=== PATIENT | male | born 1935 | race Caucasian/White ===

== ENCOUNTER 2020-08-03 13:45 | Outpatient (RCR) | payer MEDICARE, OTHER, SELFPAY ==
--- NOTE | 2020-07-13 17:44 | PT.OIE ---
Current Diagnoses Meniere's disease, left ear (07/13/20) Benign paroxysmal vertigo, left ear (07/13/20) Unspecified sensorineural hearing loss (07/13/20) Other specified disorders of nose and nasal sinuses (07/13/20) Dizziness and giddiness (07/13/20) Visit Care Team Role Provider Type Sharmin Urbano MD Primary Care Provider Non-Staff Specialty: Internal Medicine Address: [address] [place] [address], [address] Email: Joel Fierro MD Attending Provider Physician Referring Provider Specialty: Ear, Nose, Throat Address: [address] [place] [address], [address] Email: [email or web address] Physical Therapy Initial Evaluation PT-OP-A Visit Information Start: 07/13/20 17:30 Freq: Status: Active Protocol: Document 07/13/20 14:30 DCW (Rec: 07/13/20 17:44 DCW [id number]) Out-Patient Physical Therapy Visit Information Visit Information Visit Type Initial Evaluation Visit Start Time 14:30 Visit Stop Time 15:15 Total Visit Minutes 45 Visit Number 1 Number of WEALTH MANAGEMENT CONSULTANT Visits 0 Evaluation Information Evaluation Date 07/13/20 PT-OP-B Current Condition Start: 07/13/20 17:30 Freq: Status: Active Protocol: Document 07/13/20 14:30 DCW (Rec: 07/13/20 17:44 DCW [id number]) Current Condition History of Current Condition Onset Date 6-7 months Current Complaints Position-dependent vertigo History of Current Condition Pt is an 84 year old male complaining of a 6-7 month history of motion-induced vertigo. Pt reports episodes last a few seconds to a minute. Symptoms are provoked by changing positions, looking down, or rolling in bed. Pt's history is complicated by a five year history of Meniere's disease, however pt notes these symptoms are entirely different. Pt does admit to taking a daily medication for Meniere's disease, which helps the dizziness some, but really takes care of the nausea and vomiting. Pt denies recent hearing changes, tinnitus, dysarthria, discoordination, or decreased mentation/consciousness. Pt denies hx of HTN, diabetes, arrhythmia, head trauma, seizure, migraines, back/neck problems, CVA, anxiety/panic disorders, depression, or excessive smoking or drinking. Pt reports he has been very careful not to fall, because he lives alone. Pt does note a long history of diplopia, however this has been corrected with the lenses in his current glasses. PT-OP-C Subjective Start: 07/13/20 17:30 Freq: Status: Active Protocol: Document 07/13/20 14:30 DCW (Rec: 07/13/20 17:44 DCW [id number]) OP-PT Subjective Patient Comments Patient Comments When I'm just sitting, I don' t have any problems. Patient Questionnaires Dizziness Handicap Inventory DHI Score 28% PT-OP-O Vestibular Start: 07/13/20 17:30 Freq: Status: Active Protocol: Document 07/13/20 14:30 DCW (Rec: 07/13/20 17:44 DCW [id number]) Vestibular Assessment Screening Tests Vestibular Artery Screen Negative Auditory Tests Delvalle Test Lateralizes left Rinne Test Negative Air Conduction Results Right Greater Visual Testing Smooth Pursuits Horizontal WNL Smooth Pursuits Vertical WNL Saccades Horizontal WNL Saccades Vertical WNL Heave Test Positive Left Thrust Head Positive Left Positional Testing Dick-Hallpike Positive Right,Negative Left, Upbeating,< 60 Seconds PT-OP-Q Treatments Start: 07/13/20 17:30 Freq: Status: Active Protocol: Document 07/13/20 14:30 DCW (Rec: 07/13/20 17:44 DCW [id number]) Canalithic Repositioning BPPV Treatment Chelly Affected Canal(s) Left posterior Reps x2 Comments Modified Chelly PT-OP-T Assessment and Plan Start: 07/13/20 17:30 Freq: Status: Active Protocol: Document 07/13/20 14:30 DCW (Rec: 07/13/20 17:44 DCW [id number]) Physical Therapy Assessment Rehab Potential Rehabilitation Potential Excellent Evaluation Complexity Number of Personal Factors/Comorbidities 0 Number of Body Systems Impaired 1-2 Clinical Presentation at Evaluation Unstable Impairments Impairments Balance,Vestibular Goals Three Impairment Pt scores a 28% disability on the Dizziness Handicap Inventory Short Term Goal (STG) Pt to score <10% on the DHI Two Impairment Positive left [place]-Hallpike Short Term Goal (STG) Negative positional testing bilaterally STG Duration 08/13/20 One Impairment Pt reports vertigo with changes in position Short Term Goal (STG) Pt to report no symptoms during bed mobility STG Duration 08/13/20 Assessment Summary Assessment During left Dick-Hallpike test, pt complained of vertigo and demonstrated up-beating, torsional nystagmus lasting approximately 10 seconds, consistent with diagnosis of left-sided posterior canal BPPV, canalithiasis-type. Pt was treated with a left-sided modified Chelly maneuver. Pt complained of symptoms in the first and third position, which is normally indicative of a successful treatment. Further positional testing was negative. Pt did display some other positive vestibular tests, including positive thrust/heave, positive L Delvalle test, and decreased L hearing , however these are all consistent with pt's known history of Meniere's disease. Pt was educated on BPPV, expectations for treatment, possible recurrence (BPPV has a ~50% recurrence rate in the five years following treatment ), and post-Chelly restrictions . Pt to return in ~1 week for a follow-up appointment, and intermittently afterward as indicated for treatment of BPPV. Physical Therapy Plan Frequency and Duration Frequency of Treatment 1-2x/week Therapeutic Interventions Therapeutic Interventions Balance Training,Canalithic Repositioning,Vestibular Rehabilitation Next Visit Focus/Plan Next Note Type Treatment Note Next Visit Plan Positional testing, CRM as indicated
--- NOTE | 2020-07-13 17:44 | PT.OPPOC ---
Physical, Occupational & Speech Therapy At [facility] Current Diagnoses Meniere's disease, left ear (07/13/20) Benign paroxysmal vertigo, left ear (07/13/20) Unspecified sensorineural hearing loss (07/13/20) Other specified disorders of nose and nasal sinuses (07/13/20) Dizziness and giddiness (07/13/20) Visit Care Team Role Provider Type Sharmin Urbano MD Primary Care Provider Non-Staff Specialty: Internal Medicine Address: [address] [place] [address], [phone] Email: Joel Fierro MD Attending Provider Physician Referring Provider Specialty: Ear, Nose, Throat Address: [address] [place] [address], [id number] Email: [email or web address] Plan Of Care PT-OP-T Assessment and Plan Start: 07/13/20 17:30 Freq: Status: Active Protocol: Document 07/13/20 14:30 DCW (Rec: 07/13/20 17:44 DCW [id number]) Physical Therapy Assessment Rehab Potential Rehabilitation Potential Excellent Evaluation Complexity Number of Personal Factors/Comorbidities 0 Number of Body Systems Impaired 1-2 Clinical Presentation at Evaluation Unstable Impairments Impairments Balance,Vestibular Goals Three Impairment Pt scores a 28% disability on the Dizziness Handicap Inventory Short Term Goal (STG) Pt to score <10% on the DHI Two Impairment Positive left [place]-Hallpike Short Term Goal (STG) Negative positional testing bilaterally STG Duration 08/13/20 One Impairment Pt reports vertigo with changes in position Short Term Goal (STG) Pt to report no symptoms during bed mobility STG Duration 08/13/20 Assessment Summary Assessment During left Dick-Hallpike test, pt complained of vertigo and demonstrated up-beating, torsional nystagmus lasting approximately 10 seconds, consistent with diagnosis of left-sided posterior canal BPPV, canalithiasis-type. Pt was treated with a left-sided modified Chelly maneuver. Pt complained of symptoms in the first and third position, which is normally indicative of a successful treatment. Further positional testing was negative. Pt did display some other positive vestibular tests, including positive thrust/heave, positive L Delvalle test, and decreased L hearing , however these are all consistent with pt's known history of Meniere's disease. Pt was educated on BPPV, expectations for treatment, possible recurrence (BPPV has a ~50% recurrence rate in the five years following treatment ), and post-Chelly restrictions . Pt to return in ~1 week for a follow-up appointment, and intermittently afterward as indicated for treatment of BPPV. Physical Therapy Plan Frequency and Duration Frequency of Treatment 1-2x/week Therapeutic Interventions Therapeutic Interventions Balance Training,Canalithic Repositioning,Vestibular Rehabilitation Next Visit Focus/Plan Next Note Type Treatment Note Next Visit Plan Positional testing, CRM as indicated Electronically Signed by: Valdemar Montero, PT 07/13/20 3420 Please Sign and Return: I have reviewed this Plan of Care and certify that the skilled therapy services above are required to meet the patient?s needs. Physician Signature Date Printed Name and Credentials Clinical Instructor Signature Printed Name and Credentials
--- NOTE | 2020-08-03 14:12 | PT.OTN ---
Current Diagnoses Meniere's disease, left ear (08/03/20) Benign paroxysmal vertigo, left ear (08/03/20) Unspecified sensorineural hearing loss (08/03/20) Other specified disorders of nose and nasal sinuses (08/03/20) Dizziness and giddiness (08/03/20) Physical Therapy Treatment Note PT-OP-A Visit Information Start: 07/13/20 17:30 Freq: Status: Active Protocol: Document 08/03/20 13:45 DCW (Rec: 08/03/20 14:10 DCW [id number]) Out-Patient Physical Therapy Visit Information Visit Information Visit Type Treatment Note Visit Start Time 13:45 Visit Stop Time 14:00 Total Visit Minutes 15 Visit Number 2 Number of BORING MILL OPERATOR [employer]AL Visits 0 Evaluation Information Evaluation Date 07/13/20 PT-OP-B Current Condition Start: 07/13/20 17:30 Freq: Status: Active Protocol: Document 07/13/20 14:30 DCW (Rec: 07/13/20 17:44 DCW [id number]) Current Condition History of Current Condition Onset Date 6-7 months Current Complaints Position-dependent vertigo History of Current Condition Pt is an 84 year old male complaining of a 6-7 month history of motion-induced vertigo. Pt reports episodes last a few seconds to a minute. Symptoms are provoked by changing positions, looking down, or rolling in bed. Pt's history is complicated by a five year history of Meniere's disease, however pt notes these symptoms are entirely different. Pt does admit to taking a daily medication for Meniere's disease, which helps the dizziness some, but really takes care of the nausea and vomiting. Pt denies recent hearing changes, tinnitus, dysarthria, discoordination, or decreased mentation/consciousness. Pt denies hx of HTN, diabetes, arrhythmia, head trauma, seizure, migraines, back/neck problems, CVA, anxiety/panic disorders, depression, or excessive smoking or drinking. Pt reports he has been very careful not to fall, because he lives alone. Pt does note a long history of diplopia, however this has been corrected with the lenses in his current glasses. PT-OP-C Subjective Start: 07/13/20 17:30 Freq: Status: Active Protocol: Document 08/03/20 13:45 DCW (Rec: 08/03/20 14:10 DCW [id number]) OP-PT Subjective Patient Comments Patient Comments I think it's a lot better. It happens at the same times, just a lot less. I can still feel it, just not nearly what it was. PT-OP-O Vestibular Start: 07/13/20 17:30 Freq: Status: Active Protocol: Document 08/03/20 13:45 DCW (Rec: 08/03/20 14:10 DCW [id number]) Vestibular Assessment Positional Testing [place]-Hallpike Negative Left,Negative Right Rolling Test Negative Left,Negative Right PT-OP-Q Treatments Start: 07/13/20 17:30 Freq: Status: Active Protocol: Document 08/03/20 13:45 DCW (Rec: 08/03/20 14:10 DCW [id number]) Canalithic Repositioning BPPV Treatment Chelly Affected Canal(s) Left posterior Reps x1 Comments Modified Chelly PT-OP-T Assessment and Plan Start: 07/13/20 17:30 Freq: Status: Active Protocol: Document 08/03/20 13:45 DCW (Rec: 08/03/20 14:10 DCW [id number]) Physical Therapy Assessment Goals Three Impairment Pt scores a 28% disability on the Dizziness Handicap Inventory Short Term Goal (STG) Pt to score <10% on the DHI Two Impairment Positive left [place]-Hallpike Short Term Goal (STG) Negative positional testing bilaterally STG Duration 08/13/20 One Impairment Pt reports vertigo with changes in position Short Term Goal (STG) Pt to report no symptoms during bed mobility STG Duration 08/13/20 Assessment Summary Assessment Pt positional testing negative today. Pt continues to complain of very mild subjective vertigo, however could not be replicated during today's session. An Chelly maneuver was performed just in case due to his subjective complaints. Pt instructed to call for follow-up if symptoms persist Physical Therapy Plan Frequency and Duration Frequency of Treatment 1-2x/week Duration of Treatment 6 weeks Plan of Care Start Date 07/13/20 Plan of Care End Date 08/24/20 Therapeutic Interventions Therapeutic Interventions Balance Training,Canalithic Repositioning,Vestibular Rehabilitation Next Visit Focus/Plan Next Note Type Treatment Note Next Visit Plan Positional testing, CRM as indicated
--- NOTE | 2020-11-30 13:49 | PT.OPDS ---
Current Diagnoses Meniere's disease, left ear (08/03/20) Benign paroxysmal vertigo, left ear (08/03/20) Unspecified sensorineural hearing loss (08/03/20) Other specified disorders of nose and nasal sinuses (08/03/20) Dizziness and giddiness (08/03/20) Visit Care Team Role Provider Type Sharmin Urbano MD Primary Care Provider Non-Staff Specialty: Internal Medicine Address: [address] [place] [address], [id number] Email: Joel Fierro MD Attending Provider Physician Referring Provider Specialty: Ear, Nose, Throat Address: [address] [place] [address], [id number] Email: [email or web address] Visit Number Visit Number 2 Discharge Summary PT-OP-B Current Condition Start: 07/13/20 17:30 Freq: Status: Active Protocol: Document 07/13/20 14:30 DCW (Rec: 07/13/20 17:44 DCW [id number]) Current Condition History of Current Condition Onset Date 6-7 months Current Complaints Position-dependent vertigo History of Current Condition Pt is an 84 year old male complaining of a 6-7 month history of motion-induced vertigo. Pt reports episodes last a few seconds to a minute. Symptoms are provoked by changing positions, looking down, or rolling in bed. Pt's history is complicated by a five year history of Meniere's disease, however pt notes these symptoms are entirely different. Pt does admit to taking a daily medication for Meniere's disease, which helps the dizziness some, but really takes care of the nausea and vomiting. Pt denies recent hearing changes, tinnitus, dysarthria, discoordination, or decreased mentation/consciousness. Pt denies hx of HTN, diabetes, arrhythmia, head trauma, seizure, migraines, back/neck problems, CVA, anxiety/panic disorders, depression, or excessive smoking or drinking. Pt reports he has been very careful not to fall, because he lives alone. Pt does note a long history of diplopia, however this has been corrected with the lenses in his current glasses. PT-OP-C Subjective Start: 07/13/20 17:30 Freq: Status: Active Protocol: Document 08/03/20 13:45 DCW (Rec: 08/03/20 14:10 DCW [id number]) OP-PT Subjective Patient Comments Patient Comments I think it's a lot better. It happens at the same times, just a lot less. I can still feel it, just not nearly what it was. PT-OP-O Vestibular Start: 07/13/20 17:30 Freq: Status: Active Protocol: Document 08/03/20 13:45 DCW (Rec: 08/03/20 14:10 DCW [id number]) Vestibular Assessment Positional Testing Dick-Hallpike Negative Left,Negative Right Rolling Test Negative Left,Negative Right PT-OP-T Assessment and Plan Start: 07/13/20 17:30 Freq: Status: Active Protocol: Document 11/30/20 13:48 DCW (Rec: 11/30/20 13:49 DCW [id number]) Physical Therapy Assessment Assessment Summary Assessment Pt instructed to call for follow-up appointment if symptoms returned. Pt has now not been seen in nearly four months, will be discharged from skilled therapy at this time. Pt will require a new referral in order to return to therapy. Physical Therapy Plan Discharge Physical Therapy Discharge Reasons No Longer Attending PT Next Visit Focus/Plan Next Note Type Discharge Summary
== END 2020-12-04 09:28 | disposition home or self-care (01) ==
LOC: PHYS 13:45
PROVIDERS: PCP Internal Medicine; Referring Provider Otolaryngology; Visit Provider Otolaryngology
DX: H81.02 Meniere's disease, left ear (principal); J34.89 Other specified disorders of nose and nasal sinuses; H90.5 Unspecified sensorineural hearing loss; H81.12 Benign paroxysmal vertigo, left ear; R42 Dizziness and giddiness
CPT/HCPCS: 95992; 97161

== ENCOUNTER 2021-04-25 10:30 | Outpatient (RCR) | payer MEDICARE, OTHER, SELFPAY ==
--- NOTE | 2021-03-20 14:51 | PT.OIE ---
Current Diagnoses Meniere's disease, left ear (03/20/21) Benign paroxysmal vertigo, right ear (03/20/21) Dizziness and giddiness (03/20/21) Visit Care Team Role Provider Type Sharmin Urbano MD Family Provider Non-Staff Primary Care Provider Specialty: Internal Medicine Address: [address] [place] [address], [address] Email: Joel Fierro MD Attending Provider Physician Referring Provider Specialty: Ear, Nose, Throat Address: [address] [place] [address], [address] Email: [email or web address] Physical Therapy Initial Evaluation PT-OP-A Visit Information Start: 03/20/21 14:35 Freq: Status: Active Protocol: Document 03/20/21 11:15 DCW (Rec: 03/20/21 14:51 DCW [id number]) Out-Patient Physical Therapy Visit Information Visit Information Visit Type Initial Evaluation Visit Start Time 11:15 Visit Stop Time 12:00 Total Visit Minutes 45 Visit Number 1 Number of KEG WASHER Visits 0 Evaluation Information Evaluation Date 03/20/21 PT-OP-B Current Condition Start: 03/20/21 14:35 Freq: Status: Active Protocol: Document 03/20/21 11:15 DCW (Rec: 03/20/21 14:51 DCW [id number]) Current Condition History of Current Condition Onset Date One month Current Complaints Positional vertigo History of Current Condition Pt is an 85 year old male complaining of a one month history of motion-induced vertigo. Pt reports episodes last a few minutes. Symptoms are provoked by bending over to pickup driver items or rolling in bed. Pt does have a history of Meniere's disease, although it is well controlled with medication. Pt was previously treated for BPPV at this clinic eight months ago, reports it was incredibly helpful until recently. Notes that yesterday morning, he rolled to his right in bed, and had fairly severe dizziness. Notes he was given papers previously describing the Chelly maneuver, and has tried it on his own, sometime feeling a bit better, sometimes feeling worse. Treatment Goals Patient/Caregiver Goals Reduce dizziness. PT-OP-C Subjective Start: 03/20/21 14:35 Freq: Status: Active Protocol: Document 03/20/21 11:15 DCW (Rec: 03/20/21 14:51 DCW [id number]) OP-PT Subjective Patient Comments Patient Comments I think I saw you last time, it really helped for a while. Now it's back. Is this going to keep happening? Patient Questionnaires Dizziness Handicap Inventory DHI Score 44% DHI Functional Impairment 40 to 59% Impaired (Score 40- 59) PT-OP-O Vestibular Start: 03/20/21 14:35 Freq: Status: Active Protocol: Document 03/20/21 11:15 DCW (Rec: 03/20/21 14:51 DCW [id number]) Vestibular Assessment Auditory Tests Delvalle Test Lateralizes left Rinne Test Negative Air Conduction Results Right Greater Visual Testing Smooth Pursuits Horizontal WNL Smooth Pursuits Vertical WNL Saccades Horizontal WNL Heave Test Negative Thrust Head Negative Positional Testing Dick-Hallpike Positive Right,Negative Left, Upbeating,< 60 Seconds Rolling Test Negative Left,Negative Right PT-OP-Q Treatments Start: 03/20/21 14:35 Freq: Status: Active Protocol: Document 03/20/21 11:15 DCW (Rec: 03/20/21 14:51 DCW [id number]) Canalithic Repositioning BPPV Treatment Chelly Affected Canal(s) Right posterior Reps x1 Comments Modified Chelly PT-OP-T Assessment and Plan Start: 03/20/21 14:35 Freq: Status: Active Protocol: Document 03/20/21 11:15 DCW (Rec: 03/20/21 14:51 [facility] [id number]) Physical Therapy Assessment Rehab Potential Rehabilitation Potential Excellent Evaluation Complexity Number of Personal Factors/Comorbidities 1-2 Number of Body Systems Impaired 1-2 Clinical Presentation at Evaluation Unstable Impairments Impairments Balance,Vestibular Goals Two Impairment Positive R Dick-Hallpike Short Term Goal (STG) Pt to display negative positional testing bilaterally STG Duration 04/19/21 One Impairment Complaints of vertigo with bed mobility Short Term Goal (STG) Pt to report no symptoms when performing bed mobility for one full week. STG Duration 04/19/21 Assessment Summary Assessment During right Dick-Hallpike test , pt complained of mild vertigo and demonstrated very mild up-beating, torsional nystagmus lasting approximately 5 seconds, consistent with diagnosis of right-sided posterior canal BPPV, canalithiasis-type. Pt was treated with a right-sided modified Chelly maneuver. Pt was educated on BPPV, expectations for treatment, possible recurrence (BPPV has a ~50% recurrence rate in the five years following treatment ), and post-Chelly restrictions . Pt to return in ~1 week for a follow-up appointment, and intermittently afterward as indicated for treatment of BPPV. Physical Therapy Plan Frequency and Duration Frequency of Treatment 1x/Week Duration of Treatment One month Plan of Care Start Date 03/20/21 Plan of Care End Date 04/19/21 Therapeutic Interventions Therapeutic Interventions Canalithic Repositioning, Manual Therapy,Neuromuscular Re-education,Vestibular Rehabilitation Next Visit Focus/Plan Next Note Type Treatment Note Next Visit Plan Positional testing, CRM as indicated
--- NOTE | 2021-03-20 14:52 | PT.OPPOC ---
Physical, Occupational & Speech Therapy At [facility] Current Diagnoses Meniere's disease, left ear (03/20/21) Benign paroxysmal vertigo, right ear (03/20/21) Dizziness and giddiness (03/20/21) Visit Care Team Role Provider Type Sharmin Urbano MD Family Provider Non-Staff Primary Care Provider Specialty: Internal Medicine Address: [address] [place] [address], [address] Email: Joel Fierro MD Attending Provider Physician Referring Provider Specialty: Ear, Nose, Throat Address: [address] [place] [address], [address] Email: [email or web address] Plan Of Care PT-OP-T Assessment and Plan Start: 03/20/21 14:35 Freq: Status: Active Protocol: Document 03/20/21 11:15 DCW (Rec: 03/20/21 14:51 DCW [id number]) Physical Therapy Assessment Rehab Potential Rehabilitation Potential Excellent Evaluation Complexity Number of Personal Factors/Comorbidities 1-2 Number of Body Systems Impaired 1-2 Clinical Presentation at Evaluation Unstable Impairments Impairments Balance,Vestibular Goals Two Impairment Positive R Dick-Hallpike Short Term Goal (STG) Pt to display negative positional testing bilaterally STG Duration 04/19/21 One Impairment Complaints of vertigo with bed mobility Short Term Goal (STG) Pt to report no symptoms when performing bed mobility for one full week. STG Duration 04/19/21 Assessment Summary Assessment During right Shelby-Hallpike test , pt complained of mild vertigo and demonstrated very mild up-beating, torsional nystagmus lasting approximately 5 seconds, consistent with diagnosis of right-sided posterior canal BPPV, canalithiasis-type. Pt was treated with a right-sided modified Chelly maneuver. Pt was educated on BPPV, expectations for treatment, possible recurrence (BPPV has a ~50% recurrence rate in the five years following treatment ), and post-Chelly restrictions . Pt to return in ~1 week for a follow-up appointment, and intermittently afterward as indicated for treatment of BPPV. Physical Therapy Plan Frequency and Duration Frequency of Treatment 1x/Week Duration of Treatment One month Plan of Care Start Date 03/20/21 Plan of Care End Date 04/19/21 Therapeutic Interventions Therapeutic Interventions Canalithic Repositioning, Manual Therapy,Neuromuscular Re-education,Vestibular Rehabilitation Next Visit Focus/Plan Next Note Type Treatment Note Next Visit Plan Positional testing, CRM as indicated Plan of Care Dates Plan of Care Start Date 03/20/21 Plan of Care End Date 04/19/21 Electronically Signed by: Valdemar Montero, PT 03/20/21 2934 Please Sign and Return: I have reviewed this Plan of Care and certify that the skilled therapy services above are required to meet the patient?s needs. Physician Signature Date Printed Name and Credentials Clinical Instructor Signature Printed Name and Credentials
--- NOTE | 2021-03-26 11:20 | PT.OTN ---
Current Diagnoses Meniere's disease, left ear (03/26/21) Benign paroxysmal vertigo, right ear (03/26/21) Physical Therapy Treatment Note PT-OP-A Visit Information Start: 03/20/21 14:35 Freq: Status: Active Protocol: Document 03/26/21 09:04 MB (Rec: 03/26/21 09:38 MB [id number]) Out-Patient Physical Therapy Visit Information Visit Information Visit Type Treatment Note Visit Note 08/14 before KX modifier for 2020 Visit Start Time 09:04 Visit Stop Time 09:45 Total Visit Minutes 41 Visit Number 2 Evaluation Information Evaluation Date 03/20/21 PT-OP-B Current Condition Start: 03/20/21 14:35 Freq: Status: Active Protocol: Document 03/20/21 11:15 DCW (Rec: 03/20/21 14:51 DCW [id number]) Current Condition History of Current Condition Onset Date One month Current Complaints Positional vertigo History of Current Condition Pt is an 85 year old male complaining of a one month history of motion-induced vertigo. Pt reports episodes last a few minutes. Symptoms are provoked by bending over to lemon picker items or rolling in bed. Pt does have a history of Meniere's disease, although it is well controlled with medication. Pt was previously treated for BPPV at this clinic eight months ago, reports it was incredibly helpful until recently. Notes that yesterday morning, he rolled to his right in bed, and had fairly severe dizziness. Notes he was given papers previously describing the Chelly maneuver, and has tried it on his own, sometime feeling a bit better, sometimes feeling worse. Treatment Goals Patient/Caregiver Goals Reduce dizziness. PT-OP-C Subjective Start: 03/20/21 14:35 Freq: Status: Active Protocol: Document 03/26/21 09:04 MB (Rec: 03/26/21 09:38 MB [id number]) OP-PT Subjective Patient Comments Patient Comments Pt states that he isn't feeling as good as the first time he saw Ken this year in June when he was evaluated and treated for BPPV on the evaluation and it was clear. PT-OP-O Vestibular Start: 03/20/21 14:35 Freq: Status: Active Protocol: Document 03/20/21 11:15 DCW (Rec: 03/20/21 14:51 DCW [id number]) Vestibular Assessment Auditory Tests Delvalle Test Lateralizes left Rinne Test Negative Air Conduction Results Right Greater Visual Testing Smooth Pursuits Horizontal WNL Smooth Pursuits Vertical WNL Saccades Horizontal WNL Heave Test Negative Thrust Head Negative Positional Testing Conner-Hallpike Positive Right,Negative Left, Upbeating,< 60 Seconds Rolling Test Negative Left,Negative Right PT-OP-Q Treatments Start: 03/20/21 14:35 Freq: Status: Active Protocol: Document 03/26/21 09:04 MB (Rec: 03/26/21 09:38 MB [id number]) Self-Care/Home Management Treatment Education Other Education Provided handout of ed for pt: benefits of white noise to offset the heart beat sound in his ear when he is side lying , benefits of towel roll support in pillow for neck support, benefits of increasing non-caffeinated fluid intake, gentle head nods right and left and up and down and scapular retraction and sitting up today and benefits of increasing PT frequency and treatments as needed...pt is receptive to all education Canalithic Repositioning BPPV Treatment Appiani Comments Pt's nystagmus is not super clear and so given known left side and horizontal nystagmus pattern, PT opts to treat left horizontal canal and PT does provide tapping to mastoid during treatment Chelly Comments B Roll Test with one pillow under head, neck support with towel and minimal HOB increased is negative for nystagmus and BPPV. Next, Right Conner-Hallpike is negative for dizziness and pt has slight 2 beat nystagmus, PT considers non-consequential. Next, Left Conner-Hallpike with horizontal beat nystagmus to the left, not particularly torsional. Pt moves out of position d/t symptoms. On second check, reversal of nystagmus with slight upbeat torsional. Cervical spine is tight and thoracic changes make positioning difficult PT-OP-T Assessment and Plan Start: 03/20/21 14:35 Freq: Status: Active Protocol: Document 03/26/21 09:04 MB (Rec: 03/26/21 09:38 MB [id number]) Physical Therapy Assessment Rehab Potential Rehabilitation Potential Good Evaluation Complexity Number of Personal Factors/Comorbidities 1-2 Number of Body Systems Impaired 1-2 Clinical Presentation at Evaluation Unstable Impairments Impairments Activity Tolerance,Balance, Functional Mobility,Gait, Posture,ROM,Soft Tissue Mobility,Transfers,Vestibular Goals 3 Short Term Goal (STG) Pt will perform WNLs on a standardized balance test to decrease fall risk by 04/25/21 . STG Duration 4 weeks Two Short Term Goal (STG) Pt will perform progressive cervical, postural, VOR and balance exercises with I to improve flexibility, posture, dizziness and balance by 04/25. STG Duration 4 weeks One Short Term Goal (STG) Pt will report an 85% improvement in dizziness to improve balance and quality of life by 04/25/21. STG Duration 4 weeks Assessment Summary Assessment Pt arrives to clinic with very unsteady gait. Pt reports that he has Meniere's and history of double vision and his glasses help with this. Upon observation, his right eye ball is more IR compared to the left in the socket. Nystagmus does not fit a clear pattern and is left-sided today. PT feels that cervical and thoracic changes make positioning for the testing difficult and that is why nystagmus is challenging to provoke consistently. Treated with Appiani for the left ear today and will see how he responds. Extensive ed today about balance and neck stiffiness contributions to less vestibular movement and BPPV. Pt is open to education today and is willing to make more PT appointments. PT updated goals and plan and will send to Dr. Fierro. Physical Therapy Plan Frequency and Duration Frequency of Treatment 1-2x/Week Duration of Treatment One month Plan of Care Start Date 03/26/21 Plan of Care End Date 04/25/21 Therapeutic Interventions Therapeutic Interventions Balance Training,Canalithic Repositioning,Gait Training, Home Exercise Program,Manual Therapy,Neuromuscular Re- education,Patient/Caregiver Education,Self-Care/Home Management,Therapeutic Activities,Therapeutic Exercises,Vestibular Rehabilitation Next Visit Focus/Plan Next Note Type Treatment Note Next Visit Plan Test for BPPV as needed and start postural training in standing against wall, gentle cervical and thoracic mobility
--- NOTE | 2021-03-26 11:20 | PT.OPPOC ---
Physical, Occupational & Speech Therapy At [facility] Current Diagnoses Meniere's disease, left ear (03/26/21) Benign paroxysmal vertigo, right ear (03/26/21) Visit Care Team Role Provider Type Sharmin Urbano MD Family Provider Non-Staff Primary Care Provider Specialty: Internal Medicine Address: [address] [place] [address], [id number] Email: Joel Fierro MD Attending Provider Physician Referring Provider Specialty: Ear, Nose, Throat Address: [address] [place] [address], [address] Email: [email or web address] Plan Of Care PT-OP-T Assessment and Plan Start: 03/20/21 14:35 Freq: Status: Active Protocol: Document 03/26/21 09:04 MB (Rec: 03/26/21 09:38 MB [id number]) Physical Therapy Assessment Rehab Potential Rehabilitation Potential Good Evaluation Complexity Number of Personal Factors/Comorbidities 1-2 Number of Body Systems Impaired 1-2 Clinical Presentation at Evaluation Unstable Impairments Impairments Activity Tolerance,Balance, Functional Mobility,Gait, Posture,ROM,Soft Tissue Mobility,Transfers,Vestibular Goals 3 Short Term Goal (STG) Pt will perform WNLs on a standardized balance test to decrease fall risk by 04/25/21 . STG Duration 4 weeks Two Short Term Goal (STG) Pt will perform progressive cervical, postural, VOR and balance exercises with I to improve flexibility, posture, dizziness and balance by 04/25. STG Duration 4 weeks One Short Term Goal (STG) Pt will report an 85% improvement in dizziness to improve balance and quality of life by 04/25/21. STG Duration 4 weeks Assessment Summary Assessment Pt arrives to clinic with very unsteady gait. Pt reports that he has Meniere's and history of double vision and his glasses help with this. Upon observation, his right eye ball is more IR compared to the left in the socket. Nystagmus does not fit a clear pattern and is left-sided today. PT feels that cervical and thoracic changes make positioning for the testing difficult and that is why nystagmus is challenging to provoke consistently. Treated with Appiani for the left ear today and will see how he responds. Extensive ed today about balance and neck stiffiness contributions to less vestibular movement and BPPV. Pt is open to education today and is willing to make more PT appointments. PT updated goals and plan and will send to Dr. Fierro. Physical Therapy Plan Frequency and Duration Frequency of Treatment 1-2x/Week Duration of Treatment One month Plan of Care Start Date 03/26/21 Plan of Care End Date 04/25/21 Therapeutic Interventions Therapeutic Interventions Balance Training,Canalithic Repositioning,Gait Training, Home Exercise Program,Manual Therapy,Neuromuscular Re- education,Patient/Caregiver Education,Self-Care/Home Management,Therapeutic Activities,Therapeutic Exercises,Vestibular Rehabilitation Next Visit Focus/Plan Next Note Type Treatment Note Next Visit Plan Test for BPPV as needed and start postural training in standing against wall, gentle cervical and thoracic mobility Plan of Care Dates Plan of Care Start Date 03/26/21 Plan of Care End Date 04/25/21 Electronically Signed by: Jyoti Ferguson, PT 03/26/21 [id number] Please Sign and Return: I have reviewed this Plan of Care and certify that the skilled therapy services above are required to meet the patient?s needs. Physician Signature Date Printed Name and Credentials Clinical Instructor Signature Printed Name and Credentials
--- NOTE | 2021-03-26 11:21 | PT.OPPOC ---
Physical, Occupational & Speech Therapy At [facility] Current Diagnoses Meniere's disease, left ear (03/26/21) Benign paroxysmal vertigo, right ear (03/26/21) Visit Care Team Role Provider Type Sharmin Urbano MD Family Provider Non-Staff Primary Care Provider Specialty: Internal Medicine Address: [address] [place] [address], [address] Email: Joel Fierro MD Attending Provider Physician Referring Provider Specialty: Ear, Nose, Throat Address: [address] [place] [address], [address] Email: [email or web address] Plan Of Care PT-OP-T Assessment and Plan Start: 03/20/21 14:35 Freq: Status: Active Protocol: Document 03/26/21 09:04 MB (Rec: 03/26/21 09:38 MB [id number]) Physical Therapy Assessment Rehab Potential Rehabilitation Potential Good Evaluation Complexity Number of Personal Factors/Comorbidities 1-2 Number of Body Systems Impaired 1-2 Clinical Presentation at Evaluation Unstable Impairments Impairments Activity Tolerance,Balance, Functional Mobility,Gait, Posture,ROM,Soft Tissue Mobility,Transfers,Vestibular Goals 3 Short Term Goal (STG) Pt will perform WNLs on a standardized balance test to decrease fall risk by 04/25/21 . STG Duration 4 weeks Two Short Term Goal (STG) Pt will perform progressive cervical, postural, VOR and balance exercises with I to improve flexibility, posture, dizziness and balance by 04/25. STG Duration 4 weeks One Short Term Goal (STG) Pt will report an 85% improvement in dizziness to improve balance and quality of life by 04/25/21. STG Duration 4 weeks Assessment Summary Assessment Pt arrives to clinic with very unsteady gait. Pt reports that he has Meniere's and history of double vision and his glasses help with this. Upon observation, his right eye ball is more IR compared to the left in the socket. Nystagmus does not fit a clear pattern and is left-sided today. PT feels that cervical and thoracic changes make positioning for the testing difficult and that is why nystagmus is challenging to provoke consistently. Treated with Appiani for the left ear today and will see how he responds. Extensive ed today about balance and neck stiffiness contributions to less vestibular movement and BPPV. Pt is open to education today and is willing to make more PT appointments. PT updated goals and plan and will send to Dr. Fierro. Physical Therapy Plan Frequency and Duration Frequency of Treatment 1-2x/Week Duration of Treatment One month Plan of Care Start Date 03/26/21 Plan of Care End Date 04/25/21 Therapeutic Interventions Therapeutic Interventions Balance Training,Canalithic Repositioning,Gait Training, Home Exercise Program,Manual Therapy,Neuromuscular Re- education,Patient/Caregiver Education,Self-Care/Home Management,Therapeutic Activities,Therapeutic Exercises,Vestibular Rehabilitation Next Visit Focus/Plan Next Note Type Treatment Note Next Visit Plan Test for BPPV as needed and start postural training in standing against wall, gentle cervical and thoracic mobility Plan of Care Dates Plan of Care Start Date 03/26/21 Plan of Care End Date 04/25/21 Electronically Signed by: Jyoti Ferguson, PT 03/26/21 1124 Please Sign and Return: I have reviewed this Plan of Care and certify that the skilled therapy services above are required to meet the patient?s needs. Physician Signature Date Printed Name and Credentials Clinical Instructor Signature Printed Name and Credentials
--- NOTE | 2021-03-29 12:58 | PT-OP ANOTE ---
PT calls pt to inquire about canceled visit with no reason given yesterday. He is unavailable and PT leaves message about his next appointment date and time.
--- NOTE | 2021-04-09 15:52 | PT.OTN ---
Current Diagnoses Meniere's disease, left ear (04/09/21) Benign paroxysmal vertigo, right ear (04/09/21) Physical Therapy Treatment Note PT-OP-A Visit Information Start: 03/20/21 14:35 Freq: Status: Active Protocol: Document 04/09/21 15:20 DCW (Rec: 04/09/21 15:52 DCW [id number]) Out-Patient Physical Therapy Visit Information Visit Information Visit Type Treatment Note Visit Note 08/14 before KX modifier for 2020 Visit Start Time 15:20 Visit Stop Time 15:46 Total Visit Minutes 26 Visit Number 3 Number of COLLECTIONS PROFESSIONAL Visits 0 Evaluation Information Evaluation Date 03/20/21 PT-OP-B Current Condition Start: 03/20/21 14:35 Freq: Status: Active Protocol: Document 03/20/21 11:15 DCW (Rec: 03/20/21 14:51 DCW [id number]) Current Condition History of Current Condition Onset Date One month Current Complaints Positional vertigo History of Current Condition Pt is an 85 year old male complaining of a one month history of motion-induced vertigo. Pt reports episodes last a few minutes. Symptoms are provoked by bending over to brass pickler items or rolling in bed. Pt does have a history of Meniere's disease, although it is well controlled with medication. Pt was previously treated for BPPV at this clinic eight months ago, reports it was incredibly helpful until recently. Notes that yesterday morning, he rolled to his right in bed, and had fairly severe dizziness. Notes he was given papers previously describing the Chelly maneuver, and has tried it on his own, sometime feeling a bit better, sometimes feeling worse. Treatment Goals Patient/Caregiver Goals Reduce dizziness. PT-OP-C Subjective Start: 03/20/21 14:35 Freq: Status: Active Protocol: Document 04/09/21 15:20 DCW (Rec: 04/09/21 15:52 DCW [id number]) OP-PT Subjective Patient Comments Patient Comments It's kind of shifted, it seems like whenever I look down and come back up, it really bothers me, less than [id number], which is what it had been. PT-OP-O Vestibular Start: 03/20/21 14:35 Freq: Status: Active Protocol: Document 04/09/21 15:20 DCW (Rec: 04/09/21 15:52 DCW [id number]) Vestibular Assessment Positional Testing Dick-Hallpike Positive Left,Negative Right, Upbeating,< 60 Seconds PT-OP-Q Treatments Start: 03/20/21 14:35 Freq: Status: Active Protocol: Document 04/09/21 15:20 DCW (Rec: 04/09/21 15:52 DCW [id number]) Canalithic Repositioning BPPV Treatment Chelly Affected Canal(s) Left posterior Reps x2 Comments Modified Chelly PT-OP-T Assessment and Plan Start: 03/20/21 14:35 Freq: Status: Active Protocol: Document 04/09/21 15:20 DCW (Rec: 04/09/21 15:52 DCW [id number]) Physical Therapy Assessment Rehab Potential Rehabilitation Potential Good Evaluation Complexity Number of Personal Factors/Comorbidities 1-2 Number of Body Systems Impaired 1-2 Clinical Presentation at Evaluation Unstable Impairments Impairments Activity Tolerance,Balance, Functional Mobility,Gait, Posture,ROM,Soft Tissue Mobility,Transfers,Vestibular Goals 3 Short Term Goal (STG) Pt will perform WNLs on a standardized balance test to decrease fall risk by 04/25/21 . STG Duration 4 weeks Two Short Term Goal (STG) Pt will perform progressive cervical, postural, VOR and balance exercises with I to improve flexibility, posture, dizziness and balance by 04/25. STG Duration 4 weeks One Short Term Goal (STG) Pt will report an 85% improvement in dizziness to improve balance and quality of life by 04/25/21. STG Duration 4 weeks Assessment Summary Assessment Pt responded much better today to CRM, showed up-beating, torsional nystagmus with left Hallpike, during Chelly was symptomatic in first and third positions. Further testing was negative. Physical Therapy Plan Frequency and Duration Frequency of Treatment 1-2x/Week Duration of Treatment One month Plan of Care Start Date 03/26/21 Plan of Care End Date 04/25/21 Therapeutic Interventions Therapeutic Interventions Balance Training,Canalithic Repositioning,Gait Training, Home Exercise Program,Manual Therapy,Neuromuscular Re- education,Patient/Caregiver Education,Self-Care/Home Management,Therapeutic Activities,Therapeutic Exercises,Vestibular Rehabilitation Next Visit Focus/Plan Next Note Type Treatment Note Next Visit Plan Test for BPPV as needed and start postural training in standing against wall, gentle cervical and thoracic mobility
--- NOTE | 2021-04-12 10:20 | PT.OTN ---
Current Diagnoses Meniere's disease, left ear (04/12/21) Benign paroxysmal vertigo, right ear (04/12/21) Physical Therapy Treatment Note PT-OP-A Visit Information Start: 03/20/21 14:35 Freq: Status: Active Protocol: Document 04/12/21 09:45 DCW (Rec: 04/12/21 10:20 DCW [id number]) Out-Patient Physical Therapy Visit Information Visit Information Visit Type Treatment Note Visit Start Time 09:45 Visit Stop Time 10:16 Total Visit Minutes 31 Visit Number 4 Number of CORPORATE REPRESENTATIVE Visits 0 Evaluation Information Evaluation Date 03/20/21 PT-OP-B Current Condition Start: 03/20/21 14:35 Freq: Status: Active Protocol: Document 03/20/21 11:15 DCW (Rec: 03/20/21 14:51 DCW [id number]) Current Condition History of Current Condition Onset Date One month Current Complaints Positional vertigo History of Current Condition Pt is an 85 year old male complaining of a one month history of motion-induced vertigo. Pt reports episodes last a few minutes. Symptoms are provoked by bending over to forklift picker items or rolling in bed. Pt does have a history of Meniere's disease, although it is well controlled with medication. Pt was previously treated for BPPV at this clinic eight months ago, reports it was incredibly helpful until recently. Notes that yesterday morning, he rolled to his right in bed, and had fairly severe dizziness. Notes he was given papers previously describing the Chelly maneuver, and has tried it on his own, sometime feeling a bit better, sometimes feeling worse. Treatment Goals Patient/Caregiver Goals Reduce dizziness. PT-OP-C Subjective Start: 03/20/21 14:35 Freq: Status: Active Protocol: Document 04/12/21 09:45 DCW (Rec: 04/12/21 10:20 DCW [id number]) OP-PT Subjective Patient Comments Patient Comments I think I'm doing better. It has improved, but it's still there. PT-OP-O Vestibular Start: 03/20/21 14:35 Freq: Status: Active Protocol: Document 04/12/21 09:45 DCW (Rec: 04/12/21 10:20 DCW [id number]) Vestibular Assessment Positional Testing Dick-Hallpike Positive Left,Negative Right, Upbeating,< 60 Seconds PT-OP-Q Treatments Start: 03/20/21 14:35 Freq: Status: Active Protocol: Document 04/12/21 09:45 DCW (Rec: 04/12/21 10:20 DCW [id number]) Manual Therapy Treatment Other Other Manual Treatments Positional testing Canalithic Repositioning BPPV Treatment Chelly Affected Canal(s) Left posterior Reps x3 Comments Modified [place] PT-OP-T Assessment and Plan Start: 03/20/21 14:35 Freq: Status: Active Protocol: Document 04/12/21 09:45 DCW (Rec: 04/12/21 10:20 DCW [id number]) Physical Therapy Assessment Impairments Impairments Activity Tolerance,Balance, Functional Mobility,Gait, Posture,ROM,Soft Tissue Mobility,Transfers,Vestibular Goals 3 Short Term Goal (STG) Pt will perform WNLs on a standardized balance test to decrease fall risk by 04/25/21 . STG Duration 4 weeks Two Short Term Goal (STG) Pt will perform progressive cervical, postural, VOR and balance exercises with I to improve flexibility, posture, dizziness and balance by 04/25. STG Duration 4 weeks One Short Term Goal (STG) Pt will report an 85% improvement in dizziness to improve balance and quality of life by 04/25/21. STG Duration 4 weeks Assessment Summary Assessment Pt continues to presents with positive left Dick-hallpike. Pt was treated with L Chelly, and further testing was negative. Because pt was already in position, a second Chelly was performed, and upon sitting, pt demonstrated increased vertigo and nystagmus. Further testing was again negative. Physical Therapy Plan Frequency and Duration Frequency of Treatment 1-2x/Week Duration of Treatment One month Plan of Care Start Date 03/26/21 Plan of Care End Date 04/25/21 Therapeutic Interventions Therapeutic Interventions Balance Training,Canalithic Repositioning,Gait Training, Home Exercise Program,Manual Therapy,Neuromuscular Re- education,Patient/Caregiver Education,Self-Care/Home Management,Therapeutic Activities,Therapeutic Exercises,Vestibular Rehabilitation Next Visit Focus/Plan Next Note Type Treatment Note Next Visit Plan Test for BPPV as needed and start postural training in standing against wall, gentle cervical and thoracic mobility
--- NOTE | 2021-04-16 15:51 | PT.OTN ---
Current Diagnoses Meniere's disease, left ear (04/16/21) Benign paroxysmal vertigo, right ear (04/16/21) Physical Therapy Treatment Note PT-OP-A Visit Information Start: 03/20/21 14:35 Freq: Status: Active Protocol: Document 04/16/21 15:15 DCW (Rec: 04/16/21 15:51 DCW [id number]) Out-Patient Physical Therapy Visit Information Visit Information Visit Type Treatment Note Visit Start Time 15:15 Visit Stop Time 15:43 Total Visit Minutes 28 Visit Number 5 Number of WASTEWATER SUPERINTENDENT Visits 0 Evaluation Information Evaluation Date 03/20/21 PT-OP-B Current Condition Start: 03/20/21 14:35 Freq: Status: Active Protocol: Document 03/20/21 11:15 DCW (Rec: 03/20/21 14:51 DCW [id number]) Current Condition History of Current Condition Onset Date One month Current Complaints Positional vertigo History of Current Condition Pt is an 85 year old male complaining of a one month history of motion-induced vertigo. Pt reports episodes last a few minutes. 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 Pt does have a history of Meniere's disease, although it is well controlled with medication. Pt was previously treated for BPPV at this clinic eight months ago, reports it was incredibly helpful until recently. Notes that yesterday morning, he rolled to his right in bed, and had fairly severe dizziness. Notes he was given papers previously describing the Chelly maneuver, and has tried it on his own, sometime feeling a bit better, sometimes feeling worse. Treatment Goals Patient/Caregiver Goals Reduce dizziness. PT-OP-C Subjective Start: 03/20/21 14:35 Freq: Status: Active Protocol: Document 04/16/21 15:15 DCW (Rec: 04/16/21 15:51 DCW [id number]) OP-PT Subjective Patient Comments Patient Comments It seems to be that nnow it's just any way I turn my head gets me a little woozy. PT-OP-O Vestibular Start: 03/20/21 14:35 Freq: Status: Active Protocol: Document 04/16/21 15:15 DCW (Rec: 04/16/21 15:51 DCW [id number]) Vestibular Assessment Positional Testing Mitchell-Hallpike Positive Left,Negative Right, Upbeating,< 60 Seconds PT-OP-Q Treatments Start: 03/20/21 14:35 Freq: Status: Active Protocol: Document 04/16/21 15:15 DCW (Rec: 04/16/21 15:51 DCW [id number]) Manual Therapy Treatment Other Other Manual Treatments Positional testing Canalithic Repositioning BPPV Treatment [place] Affected Canal(s) Left posterior Reps x2 Comments Modified [place] PT-OP-T Assessment and Plan Start: 03/20/21 14:35 Freq: Status: Active Protocol: Document 04/16/21 15:15 DCW (Rec: 04/16/21 15:51 DCW [id number]) Physical Therapy Assessment Impairments Impairments Activity Tolerance,Balance, Functional Mobility,Gait, Posture,ROM,Soft Tissue Mobility,Transfers,Vestibular Goals 3 Short Term Goal (STG) Pt will perform WNLs on a standardized balance test to decrease fall risk by 04/25/21 . STG Duration 4 weeks Two Short Term Goal (STG) Pt will perform progressive cervical, postural, VOR and balance exercises with I to improve flexibility, posture, dizziness and balance by 04/25. STG Duration 4 weeks One Short Term Goal (STG) Pt will report an 85% improvement in dizziness to improve balance and quality of life by 04/25/21. STG Duration 4 weeks Assessment Summary Assessment Pt once again presents with L posterior canal BPPV, however did much better with the first [place]ly today, and further testing was entirely negative. Pt noted feeling better immediately upon sitting, more optimistic after today's visit. Physical Therapy Plan Frequency and Duration Frequency of Treatment 1-2x/Week Duration of Treatment One month Plan of Care Start Date 03/26/21 Plan of Care End Date 04/25/21 Therapeutic Interventions Therapeutic Interventions Balance Training,Canalithic Repositioning,Gait Training, Home Exercise Program,Manual Therapy,Neuromuscular Re- education,Patient/Caregiver Education,Self-Care/Home Management,Therapeutic Activities,Therapeutic Exercises,Vestibular Rehabilitation Next Visit Focus/Plan Next Note Type Treatment Note Next Visit Plan Test for BPPV as needed and start postural training in standing against wall, gentle cervical and thoracic mobility
--- NOTE | 2021-04-18 10:38 | PT.OTN ---
Current Diagnoses Meniere's disease, left ear (04/18/21) Benign paroxysmal vertigo, right ear (04/18/21) Physical Therapy Treatment Note PT-OP-A Visit Information Start: 03/20/21 14:35 Freq: Status: Active Protocol: Document 04/18/21 10:13 DCW (Rec: 04/18/21 10:38 DCW [id number]) Out-Patient Physical Therapy Visit Information Visit Information Visit Type Treatment Note Visit Start Time 10:13 Visit Stop Time 10:32 Total Visit Minutes 19 Visit Number 6 Number of PATTERN CHART WRITER Visits 0 Evaluation Information Evaluation Date 03/20/21 PT-OP-B Current Condition Start: 03/20/21 14:35 Freq: Status: Active Protocol: Document 03/20/21 11:15 DCW (Rec: 03/20/21 14:51 DCW [id number]) Current Condition History of Current Condition Onset Date One month Current Complaints Positional vertigo History of Current Condition Pt is an 85 year old male complaining of a one month history of motion-induced vertigo. Pt reports episodes last a few minutes. 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 Pt does have a history of Meniere's disease, although it is well controlled with medication. Pt was previously treated for BPPV at this clinic eight months ago, reports it was incredibly helpful until recently. Notes that yesterday morning, he rolled to his right in bed, and had fairly severe dizziness. Notes he was given papers previously describing the Chelly maneuver, and has tried it on his own, sometime feeling a bit better, sometimes feeling worse. Treatment Goals Patient/Caregiver Goals Reduce dizziness. PT-OP-C Subjective Start: 03/20/21 14:35 Freq: Status: Active Protocol: Document 04/18/21 10:13 DCW (Rec: 04/18/21 10:38 DCW [id number]) OP-PT Subjective Patient Comments Patient Comments I think I actually took a step backwards. PT-OP-O Vestibular Start: 03/20/21 14:35 Freq: Status: Active Protocol: Document 04/18/21 10:13 DCW (Rec: 04/18/21 10:38 DCW [id number]) Vestibular Assessment Positional Testing Dick-Hallpike Positive Left,Negative Right, Upbeating,< 60 Seconds PT-OP-Q Treatments Start: 03/20/21 14:35 Freq: Status: Active Protocol: Document 04/18/21 10:13 DCW (Rec: 04/18/21 10:38 DCW [id number]) Manual Therapy Treatment Other Other Manual Treatments Positional testing Canalithic Repositioning BPPV Treatment [place] Affected Canal(s) Left posterior Reps x2 Comments Modified [place] PT-OP-T Assessment and Plan Start: 03/20/21 14:35 Freq: Status: Active Protocol: Document 04/18/21 10:13 DCW (Rec: 04/18/21 10:38 DCW [id number]) Physical Therapy Assessment Impairments Impairments Activity Tolerance,Balance, Functional Mobility,Gait, Posture,ROM,Soft Tissue Mobility,Transfers,Vestibular Goals 3 Short Term Goal (STG) Pt will perform WNLs on a standardized balance test to decrease fall risk by 04/25/21 . STG Duration 4 weeks Two Short Term Goal (STG) Pt will perform progressive cervical, postural, VOR and balance exercises with I to improve flexibility, posture, dizziness and balance by 04/25. STG Duration 4 weeks One Short Term Goal (STG) Pt will report an 85% improvement in dizziness to improve balance and quality of life by 04/25/21. STG Duration 4 weeks Assessment Summary Assessment Treatment session again went similar to last few, pt comes in complaining of continuing symptoms, positive Hallpike and and Chelly is performed, and then further testing is negative and pt reports feeling much better. Unclear why this appears to just be constantly recurring, my be beneficial for pt to return to PCP for further work-up, but for now will just continue to attempt appropriate BPPV treatment. Physical Therapy Plan Frequency and Duration Frequency of Treatment 1-2x/Week Duration of Treatment One month Plan of Care Start Date 03/26/21 Plan of Care End Date 04/25/21 Therapeutic Interventions Therapeutic Interventions Balance Training,Canalithic Repositioning,Gait Training, Home Exercise Program,Manual Therapy,Neuromuscular Re- education,Patient/Caregiver Education,Self-Care/Home Management,Therapeutic Activities,Therapeutic Exercises,Vestibular Rehabilitation Next Visit Focus/Plan Next Note Type Treatment Note Next Visit Plan Test for BPPV as needed and start postural training in standing against wall, gentle cervical and thoracic mobility
--- NOTE | 2021-04-25 10:47 | PT.OTN ---
Current Diagnoses Meniere's disease, left ear (04/25/21) Benign paroxysmal vertigo, right ear (04/25/21) Physical Therapy Treatment Note PT-OP-A Visit Information Start: 03/20/21 14:35 Freq: Status: Active Protocol: Document 04/25/21 10:30 DCW (Rec: 04/25/21 10:47 DCW [id number]) Out-Patient Physical Therapy Visit Information Visit Information Visit Type Treatment Note Visit Start Time 10:30 Visit Stop Time 10:41 Total Visit Minutes 11 Visit Number 7 Number of QUILL LAYER Visits 0 Evaluation Information Evaluation Date 03/20/21 PT-OP-B Current Condition Start: 03/20/21 14:35 Freq: Status: Active Protocol: Document 03/20/21 11:15 DCW (Rec: 03/20/21 14:51 DCW [id number]) Current Condition History of Current Condition Onset Date One month Current Complaints Positional vertigo History of Current Condition Pt is an 85 year old male complaining of a one month history of motion-induced vertigo. Pt reports episodes last a few minutes. Symptoms are provoked by bending over to cloth picker items or rolling in bed. Pt does have a history of Meniere's disease, although it is well controlled with medication. Pt was previously treated for BPPV at this clinic eight months ago, reports it was incredibly helpful until recently. Notes that yesterday morning, he rolled to his right in bed, and had fairly severe dizziness. Notes he was given papers previously describing the Chelly maneuver, and has tried it on his own, sometime feeling a bit better, sometimes feeling worse. Treatment Goals Patient/Caregiver Goals Reduce dizziness. PT-OP-C Subjective Start: 03/20/21 14:35 Freq: Status: Active Protocol: Document 04/25/21 10:30 DCW (Rec: 04/25/21 10:47 DCW [id number]) OP-PT Subjective Patient Comments Patient Comments I'm not really noticing. I don't know if it's mentally I' m blocking it out more, or if it's actually going away. PT-OP-O Vestibular Start: 03/20/21 14:35 Freq: Status: Active Protocol: Document 04/25/21 10:30 DCW (Rec: 04/25/21 10:47 DCW [id number]) Vestibular Assessment Positional Testing Dick-Hallpike Negative Left,Negative Right PT-OP-Q Treatments Start: 03/20/21 14:35 Freq: Status: Active Protocol: Document 04/25/21 10:30 DCW (Rec: 04/25/21 10:47 DCW [id number]) Manual Therapy Treatment Other Other Manual Treatments Positional testing Canalithic Repositioning BPPV Treatment Chelly Affected Canal(s) Left posterior Reps x1 Comments Modified Chel[place] PT-OP-T Assessment and Plan Start: 03/20/21 14:35 Freq: Status: Active Protocol: Document 04/25/21 10:30 DCW (Rec: 04/25/21 10:47 DCW [id number]) Physical Therapy Assessment Impairments Impairments Activity Tolerance,Balance, Functional Mobility,Gait, Posture,ROM,Soft Tissue Mobility,Transfers,Vestibular Goals 3 Short Term Goal (STG) Pt will perform WNLs on a standardized balance test to decrease fall risk by 04/25/21 . STG Duration 4 weeks Two Short Term Goal (STG) Pt will perform progressive cervical, postural, VOR and balance exercises with I to improve flexibility, posture, dizziness and balance by 04/25. STG Duration 4 weeks One Short Term Goal (STG) Pt will report an 85% improvement in dizziness to improve balance and quality of life by 04/25/21. STG Duration 4 weeks Assessment Summary Assessment Pt entirely negative today, feeling much better. Due to the difficulty in clearing his BPPV, therapist recommended no discharge at this time, will wait over the next month to see if symptoms return. If pt does not schedule any follow-ups by May, he will be discharged at that time. Pt agreeable to this plan. Physical Therapy Plan Frequency and Duration Frequency of Treatment As needed Duration of Treatment One month Plan of Care Start Date 04/25/21 Plan of Care End Date 05/26/21 Therapeutic Interventions Therapeutic Interventions Balance Training,Canalithic Repositioning,Gait Training, Home Exercise Program,Manual Therapy,Neuromuscular Re- education,Patient/Caregiver Education,Self-Care/Home Management,Therapeutic Activities,Therapeutic Exercises,Vestibular Rehabilitation Next Visit Focus/Plan Next Note Type Treatment Note Next Visit Plan Test for BPPV as needed and start postural training in standing against wall, gentle cervical and thoracic mobility
--- NOTE | 2021-04-25 10:47 | PT.OPPOC ---
Physical, Occupational & Speech Therapy At [facility] Current Diagnoses Meniere's disease, left ear (04/25/21) Benign paroxysmal vertigo, right ear (04/25/21) Visit Care Team Role Provider Type Sharmin Urbano MD Family Provider Non-Staff Primary Care Provider Specialty: Internal Medicine Address: [address] [place] [address], [id number] Email: Joel Fierro MD Attending Provider Physician Referring Provider Specialty: Ear, Nose, Throat Address: [address] [place] [address], [id number] Email: [email or web address] Plan Of Care PT-OP-T Assessment and Plan Start: 03/20/21 14:35 Freq: Status: Active Protocol: Document 04/25/21 10:30 DCW (Rec: 04/25/21 10:47 DCW [id number]) Physical Therapy Assessment Impairments Impairments Activity Tolerance,Balance, Functional Mobility,Gait, Posture,ROM,Soft Tissue Mobility,Transfers,Vestibular Goals 3 Short Term Goal (STG) Pt will perform WNLs on a standardized balance test to decrease fall risk by 04/25/21 . STG Duration 4 weeks Two Short Term Goal (STG) Pt will perform progressive cervical, postural, VOR and balance exercises with I to improve flexibility, posture, dizziness and balance by 04/25. STG Duration 4 weeks One Short Term Goal (STG) Pt will report an 85% improvement in dizziness to improve balance and quality of life by 04/25/21. STG Duration 4 weeks Assessment Summary Assessment Pt entirely negative today, feeling much better. Due to the difficulty in clearing his BPPV, therapist recommended no discharge at this time, will wait over the next month to see if symptoms return. If pt does not schedule any follow-ups by May, he will be discharged at that time. Pt agreeable to this plan. Physical Therapy Plan Frequency and Duration Frequency of Treatment As needed Duration of Treatment One month Plan of Care Start Date 04/25/21 Plan of Care End Date 05/26/21 Therapeutic Interventions Therapeutic Interventions Balance Training,Canalithic Repositioning,Gait Training, Home Exercise Program,Manual Therapy,Neuromuscular Re- education,Patient/Caregiver Education,Self-Care/Home Management,Therapeutic Activities,Therapeutic Exercises,Vestibular Rehabilitation Next Visit Focus/Plan Next Note Type Treatment Note Next Visit Plan Test for BPPV as needed and start postural training in standing against wall, gentle cervical and thoracic mobility Plan of Care Dates Plan of Care Start Date 04/25/21 Plan of Care End Date 05/26/21 Electronically Signed by: Valdemar Montero, PT 04/25/21 [id number] Please Sign and Return: I have reviewed this Plan of Care and certify that the skilled therapy services above are required to meet the patient?s needs. Physician Signature Date Printed Name and Credentials Clinical Instructor Signature Printed Name and Credentials
--- NOTE | 2021-06-28 10:29 | PT.OPDS ---
Current Diagnoses Meniere's disease, left ear (04/25/21) Benign paroxysmal vertigo, right ear (04/25/21) Visit Care Team Role Provider Type Sharmin Urbano MD Family Provider Non-Staff Primary Care Provider Specialty: Internal Medicine Address: [address] [place] [address], [id number] Email: Joel Fierro MD Attending Provider Physician Referring Provider Specialty: Ear, Nose, Throat Address: [address] [place] [address], [id number] Email: [email or web address] Visit Number Visit Number 7 Discharge Summary PT-OP-B Current Condition Start: 03/20/21 14:35 Freq: Status: Active Protocol: Document 03/20/21 11:15 DCW (Rec: 03/20/21 14:51 DCW [id number]) Current Condition History of Current Condition Onset Date One month Current Complaints Positional vertigo History of Current Condition Pt is an 85 year old male complaining of a one month history of motion-induced vertigo. Pt reports episodes last a few minutes. 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 Pt does have a history of Meniere's disease, although it is well controlled with medication. Pt was previously treated for BPPV at this clinic eight months ago, reports it was incredibly helpful until recently. Notes that yesterday morning, he rolled to his right in bed, and had fairly severe dizziness. Notes he was given papers previously describing the Chelly maneuver, and has tried it on his own, sometime feeling a bit better, sometimes feeling worse. Treatment Goals Patient/Caregiver Goals Reduce dizziness. PT-OP-C Subjective Start: 03/20/21 14:35 Freq: Status: Active Protocol: Document 04/25/21 10:30 DCW (Rec: 04/25/21 10:47 DCW [id number]) OP-PT Subjective Patient Comments Patient Comments I'm not really noticing. I don't know if it's mentally I' m blocking it out more, or if it's actually going away. PT-OP-O Vestibular Start: 03/20/21 14:35 Freq: Status: Active Protocol: Document 04/25/21 10:30 DCW (Rec: 04/25/21 10:47 DCW [id number]) Vestibular Assessment Positional Testing [place]-Hallpike Negative Left,Negative Right PT-OP-T Assessment and Plan Start: 03/20/21 14:35 Freq: Status: Active Protocol: Document 06/28/21 10:28 DCW (Rec: 06/28/21 10:29 DCW [id number]) Physical Therapy Assessment Assessment Summary Assessment Pt was doing very well at his last visit, decided to keep chart open for 1 month in angelia symptoms returned. PPt has now not been seen in two months, will be discharged from skilled therapy at this time. Physical Therapy Plan Discharge Physical Therapy Discharge Reasons Goals Met Next Visit Focus/Plan Next Note Type Discharge Summary
== END 2021-07-02 13:53 ==
LOC: PHYS 10:30
PROVIDERS: Family Provider Internal Medicine; PCP Internal Medicine; Referring Provider Otolaryngology; Visit Provider Otolaryngology
DX: H81.02 Meniere's disease, left ear (principal); H81.11 Benign paroxysmal vertigo, right ear
CPT/HCPCS: 95992; 97140; 97161; 97535

== ENCOUNTER 2021-12-04 16:45 | Outpatient (RCR) | payer MEDICARE, OTHER, SELFPAY ==
--- NOTE | 2021-11-08 20:26 | PT.OIE ---
Current Diagnoses Meniere's disease, left ear (11/08/21) Benign paroxysmal vertigo, left ear (11/08/21) Unspecified sensorineural hearing loss (11/08/21) Other specified disorders of nose and nasal sinuses (11/08/21) Dizziness and giddiness (11/08/21) Visit Care Team Role Provider Type Alberto Lyman DO Family Provider Non-Staff Primary Care Provider Specialty: Family Practice Address: [address] [place] [address], [id number] Email: Joel Fierro MD Attending Provider Physician Referring Provider Specialty: Ear, Nose, Throat Address: [address] [place] [address], [address] Email: [email or web address] Physical Therapy Initial Evaluation PT-OP-A Visit Information Start: 11/07/21 21:16 Freq: Status: Active Protocol: Document 11/08/21 13:45 AMB (Rec: 11/08/21 13:56 AMB [id number]) Out-Patient Physical Therapy Visit Information Visit Information Visit Type Initial Evaluation Visit Start Time 13:45 Visit Stop Time 14:30 Total Visit Minutes 45 Visit Number 1 PT-OP-B Current Condition Start: 11/07/21 21:16 Freq: Status: Active Protocol: Document 11/08/21 13:45 AMB (Rec: 11/08/21 13:56 AMB [id number]) Current Condition History of Current Condition Onset Date acute exacerbation Current Complaints dizziness History of Current Condition [place] great since last visit of PT in the winter which treated him for BPPV, then 2 weeks ago dizziness started back up again. Getting dizzy to get up at night, and in the moring. Looking up and down (like big bends forward) increase sx. Dizziness lasts at least a minute when getting out of bed. Denies nausea, ear pressure pain. Pt does endorse chronic double vision. Dizziness is less of a spinning and more of a movement that makes walking difficult. Treatment Goals Patient/Caregiver Goals Get rid of dizziness Personal Factors Other Personal Factors That May Effect Hx of Meniere's?, Hx cataract Therapy/Recovery surgery, torn retina surger 2021, Hx prostate cancer 1994, Cardiac bypass 2012 PT-OP-C Subjective Start: 11/07/21 21:16 Freq: Status: Active Protocol: Document 11/08/21 15:52 AMB (Rec: 11/08/21 16:11 AMB [id number]) Patient Questionnaires Dizziness Handicap Inventory DHI Score 36 DHI Functional Impairment 20 to 39% Impaired (Score 20- 39) PT-OP-O Vestibular Start: 11/07/21 21:16 Freq: Status: Active Protocol: Document 11/08/21 13:45 AMB (Rec: 11/08/21 20:16 AMB [id number]) Vestibular Assessment Visual Testing Smooth Pursuits Horizontal WFL Smooth Pursuits Vertical WFL Saccades Horizontal WFL Saccades Vertical WFL Gaze Evoked Nystagmus With Fixation Negative Thrust Head Negative Convergence Test WNL Positional Testing Good[place]-Hallpike Positive Left,Upbeating,< 60 Seconds Comments Vestibular Comments Pt with very brief nystagmus, but without subjective dizziness with L Dick-Hallpike, but did have dizziness with position 3 of Chelly. Instructed in post manuever precautions. PT-OP-T Assessment and Plan Start: 11/07/21 21:16 Freq: Status: Active Protocol: Document 11/08/21 15:52 AMB (Rec: 11/08/21 16:11 AMB [id number]) Physical Therapy Assessment Rehab Potential Rehabilitation Potential Good Evaluation Complexity Number of Personal Factors/Comorbidities 3 or More Number of Body Systems Impaired 1-2 Clinical Presentation at Evaluation Stable Impairments Impairments Vestibular Goals Two Impairment Dick-Hallpike Short Term Goal (STG) Jalen will have a negative L Dick -Hallpike. STG Duration 4 weeks One Impairment Dizziness Short Term Goal (STG) Jalen will get out of bed without dizziness. STG Duration 4 weeks Stretching Machine Tender Frame Goal (LTG) Jalen will bend forward and look up without dizziness. LTG Duration 8 weeks Assessment Summary Assessment Jalen attends physical therapy with a history of recent L BPPV last February that required 5-6 treatments and then the patient was without dizziness until 2 weeks ago. He does report distant history of being diagnosed with Meniere's about 6 years ago, but reports he is no longer taking any medication for that . He describes the worst of the dizziness as in the morning with sitting up out of bed. Specifically denies lightheadedness, more of a rocking/off balance. Pt did have very brief upbeating nystagmus with L [place]e-Hallpike, none with R. Not especially dizzy with 1st position of Chelly, interestingly, but did have dizziness in position 3. Jalen will benefit from vestibular PT to clear this bout of BPPV and then further assess dizziness/balance as necessary. Physical Therapy Plan Frequency and Duration Frequency of Treatment 2x/Week Duration of Treatment 8 weeks Plan of Care Start Date 11/08/21 Plan of Care End Date 01/03/22 Therapeutic Interventions Therapeutic Interventions Balance Training,Canalithic Repositioning,Home Exercise Program,Neuromuscular Re- education,Self-Care/Home Management,Therapeutic Activities,Therapeutic Exercises,Vestibular Rehabilitation Next Visit Focus/Plan Next Note Type Treatment Note Next Visit Plan Recheck L Dick-Hallpike
--- NOTE | 2021-11-08 20:29 | PT.OPPOC ---
Physical, Occupational & Speech Therapy At [facility] Current Diagnoses Meniere's disease, left ear (11/08/21) Benign paroxysmal vertigo, left ear (11/08/21) Unspecified sensorineural hearing loss (11/08/21) Other specified disorders of nose and nasal sinuses (11/08/21) Dizziness and giddiness (11/08/21) Visit Care Team Role Provider Type Alberto Lyman DO Family Provider Non-Staff Primary Care Provider Specialty: Family Practice Address: [address] [place] [address], [phone] Email: Joel Fierro MD Attending Provider Physician Referring Provider Specialty: Ear, Nose, Throat Address: [address] [place] [address], [address] Email: [email or web address] Plan Of Care PT-OP-T Assessment and Plan Start: 11/07/21 21:16 Freq: Status: Active Protocol: Document 11/08/21 15:52 AMB (Rec: 11/08/21 16:11 AMB [id number]) Physical Therapy Assessment Rehab Potential Rehabilitation Potential Good Evaluation Complexity Number of Personal Factors/Comorbidities 3 or More Number of Body Systems Impaired 1-2 Clinical Presentation at Evaluation Stable Impairments Impairments Vestibular Goals Two Impairment Dick-Hallpike Short Term Goal (STG) Jalen will have a negative L [place] -Hallpike. STG Duration 4 weeks One Impairment Dizziness Short Term Goal (STG) Jalen will get out of bed without dizziness. STG Duration 4 weeks Chemic Mangler Goal (LTG) Jalen will bend forward and look up without dizziness. LTG Duration 8 weeks Assessment Summary Assessment Jalen attends physical therapy with a history of recent L BPPV last February that required 5-6 treatments and then the patient was without dizziness until 2 weeks ago. He does report distant history of being diagnosed with Meniere's about 6 years ago, but reports he is no longer taking any medication for that . He describes the worst of the dizziness as in the morning with sitting up out of bed. Specifically denies lightheadedness, more of a rocking/off balance. Pt did have very brief upbeating nystagmus with L Dick-Hallpike, none with R. Not especially dizzy with 1st position of Chelly, interestingly, but did have dizziness in position 3. Jalen will benefit from vestibular PT to clear this bout of BPPV and then further assess dizziness/balance as necessary. Physical Therapy Plan Frequency and Duration Frequency of Treatment 2x/Week Duration of Treatment 8 weeks Plan of Care Start Date 11/08/21 Plan of Care End Date 01/03/22 Therapeutic Interventions Therapeutic Interventions Balance Training,Canalithic Repositioning,Home Exercise Program,Neuromuscular Re- education,Self-Care/Home Management,Therapeutic Activities,Therapeutic Exercises,Vestibular Rehabilitation Next Visit Focus/Plan Next Note Type Treatment Note Next Visit Plan Recheck L [place]-Hallpike Plan of Care Dates Plan of Care Start Date 11/08/21 Plan of Care End Date 01/03/22 Electronically Signed by: Nataly Espinosa, PT 11/08/212028 If you are in agreement with this Plan of Care, please return a signed and dated copy. I have reviewed this Plan of Care and certify that the skilled therapy services above are required to meet the patient?s needs. Physician Signature Date Printed Name and Credentials Clinical Instructor Signature Printed Name and Credentials
--- NOTE | 2021-11-15 08:55 | PT.OTN ---
Current Diagnoses Meniere's disease, left ear (11/15/21) Benign paroxysmal vertigo, left ear (11/15/21) Unspecified sensorineural hearing loss (11/15/21) Other specified disorders of nose and nasal sinuses (11/15/21) Dizziness and giddiness (11/15/21) Physical Therapy Treatment Note PT-OP-A Visit Information Start: 11/07/21 21:16 Freq: Status: Active Protocol: Document 11/15/21 07:51 AMB (Rec: 11/15/21 08:55 AMB [id number]) Out-Patient Physical Therapy Visit Information Visit Information Visit Type Treatment Note Visit Start Time 07:30 Visit Stop Time 08:15 Total Visit Minutes 45 Visit Number 2 PT-OP-B Current Condition Start: 11/07/21 21:16 Freq: Status: Active Protocol: Document 11/08/21 13:45 AMB (Rec: 11/08/21 13:56 AMB [id number]) Current Condition History of Current Condition Onset Date acute exacerbation Current Complaints dizziness History of Current Condition [place] great since last visit of PT in the winter which treated him for BPPV, then 2 weeks ago dizziness started back up again. Getting dizzy to get up at night, and in the moring. Looking up and down (like big bends forward) increase sx. Dizziness lasts at least a minute when getting out of bed. Denies nausea, ear pressure pain. Pt does endorse chronic double vision. Dizziness is less of a spinning and more of a movement that makes walking difficult. Treatment Goals Patient/Caregiver Goals Get rid of dizziness Personal Factors Other Personal Factors That May Effect Hx of Meneire's??, Hx cataract Therapy/Recovery surgery, torn retina surger 2021, Hx prostate cancer 1994, Cardiac bypass 2012 PT-OP-C Subjective Start: 11/07/21 21:16 Freq: Status: Active Protocol: Document 11/15/21 07:51 AMB (Rec: 11/15/21 08:55 AMB [id number]) OP-PT Subjective Patient Comments Patient Comments Was feeling better for a couple days after eval, but feels pretty much back to normal dizziness now. PT-OP-O Vestibular Start: 11/07/21 21:16 Freq: Status: Active Protocol: Document 11/08/21 13:45 AMB (Rec: 11/08/21 20:16 AMB [id number]) Vestibular Assessment Visual Testing Smooth Pursuits Horizontal WFL Smooth Pursuits Vertical WFL Saccades Horizontal WFL Saccades Vertical WFL Gaze Evoked Nystagmus With Fixation Negative Thrust Head Negative Convergence Test WNL Positional Testing Dick-Hallpike Positive Left,Upbeating,< 60 Seconds Comments Vestibular Comments Pt with very brief nystagmus, but without subjective dizziness with L Dick-Hallpike, but did have dizziness with position 3 of Chelly. Instructed in post manuever precautions. PT-OP-Q Treatments Start: 11/07/21 21:16 Freq: Status: Active Protocol: Document 11/15/21 07:51 AMB (Rec: 11/15/21 08:55 AMB [id number]) Canalithic Repositioning BPPV Treatment Chelly Affected Canal(s) Left posterior Reps x2 Comments Modified Chelly PT-OP-T Assessment and Plan Start: 11/07/21 21:16 Freq: Status: Active Protocol: Document 11/15/21 07:51 AMB (Rec: 11/15/21 08:55 AMB [id number]) Physical Therapy Assessment Goals Two Impairment Dick-Hallpike Short Term Goal (STG) Jalen will have a negative L Dick -Hallpike. STG Duration 4 weeks One Impairment Dizziness Short Term Goal (STG) Jalen will get out of bed without dizziness. STG Duration 4 weeks Cotton Factor Goal (LTG) Jalen will bend forward and look up without dizziness. LTG Duration 8 weeks Assessment Summary Assessment Jalen presented with torsional nystagmus in position 1, with first repetition and then none with second Chelly. Physical Therapy Plan Next Visit Focus/Plan Next Note Type Treatment Note Next Visit Plan Recheck L [place]-Hallpike
--- NOTE | 2021-11-26 13:23 | PT.OTN ---
Current Diagnoses Meniere's disease, left ear (11/26/21) Benign paroxysmal vertigo, left ear (11/26/21) Unspecified sensorineural hearing loss (11/26/21) Other specified disorders of nose and nasal sinuses (11/26/21) Dizziness and giddiness (11/26/21) Physical Therapy Treatment Note PT-OP-A Visit Information Start: 11/07/21 21:16 Freq: Status: Active Protocol: Document 11/26/21 08:21 AMB (Rec: 11/26/21 09:19 AMB [id number]) Out-Patient Physical Therapy Visit Information Visit Information Visit Type Treatment Note Visit Start Time 08:15 Visit Stop Time 09:00 Total Visit Minutes 45 Visit Number 3 PT-OP-B Current Condition Start: 11/07/21 21:16 Freq: Status: Active Protocol: Document 11/08/21 13:45 AMB (Rec: 11/08/21 13:56 AMB [id number]) Current Condition History of Current Condition Onset Date acute exacerbation Current Complaints dizziness History of Current Condition [place] great since last visit of PT in the winter which treated him for BPPV, then 2 weeks ago dizziness started back up again. Getting dizzy to get up at night, and in the moring. Looking up and down (like big bends forward) increase sx. Dizziness lasts at least a minute when getting out of bed. Denies nausea, ear pressure pain. Pt does endorse chronic double vision. Dizziness is less of a spinning and more of a movement that makes walking difficult. Treatment Goals Patient/Caregiver Goals Get rid of dizziness Personal Factors Other Personal Factors That May Effect Hx of Meneire's??, Hx cataract Therapy/Recovery surgery, torn retina surger 2021, Hx prostate cancer 1994, Cardiac bypass 2012 PT-OP-C Subjective Start: 11/07/21 21:16 Freq: Status: Active Protocol: Document 11/26/21 08:15 AMB (Rec: 11/26/21 13:04 AMB [id number]) OP-PT Subjective Patient Comments Patient Comments Pt reports he is about 50% improved. PT-OP-O Vestibular Start: 11/07/21 21:16 Freq: Status: Active Protocol: Document 11/08/21 13:45 AMB (Rec: 11/08/21 20:16 AMB [id number]) Vestibular Assessment Visual Testing Smooth Pursuits Horizontal WFL Smooth Pursuits Vertical WFL Saccades Horizontal WFL Saccades Vertical WFL Gaze Evoked Nystagmus With Fixation Negative Thrust Head Negative Convergence Test WNL Positional Testing [place]-Hallpike Positive Left,Upbeating,< 60 Seconds Comments Vestibular Comments Pt with very brief nystagmus, but without subjective dizziness with L Dick-Hallpike, but did have dizziness with position 3 of Chelly. Instructed in post manuever precautions. PT-OP-Q Treatments Start: 11/07/21 21:16 Freq: Status: Active Protocol: Document 11/26/21 08:21 AMB (Rec: 11/26/21 09:19 AMB [id number]) Canalithic Repositioning BPPV Treatment Chelly Affected Canal(s) Left posterior Reps x1 Comments Modified Chelly PT-OP-T Assessment and Plan Start: 11/07/21 21:16 Freq: Status: Active Protocol: Document 11/26/21 08:21 AMB (Rec: 11/26/21 09:19 AMB [id number]) Physical Therapy Assessment Goals Two Impairment Dick-Hallpike Short Term Goal (STG) Jalen will have a negative L Dick -Hallpike. STG Duration 4 weeks One Impairment Dizziness Short Term Goal (STG) Jalen will get out of bed without dizziness. STG Duration 4 weeks Mcc Goal (LTG) Jalen will bend forward and look up without dizziness. LTG Duration 8 weeks Assessment Summary Assessment Pt did not have any nystagmus or dizziness in any part of L Chelly today. Even with patient's sx decreasing and no nystagmus, recommended continue at least 1 more visit of PT given that patient had such a long course with previous PT before completely resolving dizziness sx. Physical Therapy Plan Next Visit Focus/Plan Next Note Type Treatment Note Next Visit Plan Recheck L [place]-Hallpike; if pt' s symptoms continue to resolve could consider d/c
--- NOTE | 2021-12-04 17:01 | PT.OIE ---
Current Diagnoses Meniere's disease, left ear (12/04/21) Benign paroxysmal vertigo, left ear (12/04/21) Unspecified sensorineural hearing loss (12/04/21) Other specified disorders of nose and nasal sinuses (12/04/21) Dizziness and giddiness (12/04/21) Visit Care Team Role Provider Type Alberto Lyman DO Family Provider Non-Staff Primary Care Provider Specialty: Family Practice Address: [address] [place] [address], [address] Email: Joel Fierro MD Attending Provider Physician Referring Provider Specialty: Ear, Nose, Throat Address: [address] [place] [address], [address] Email: [email or web address] Physical Therapy Initial Evaluation PT-OP-A Visit Information Start: 11/07/21 21:16 Freq: Status: Active Protocol: Document 12/04/21 16:45 DCW (Rec: 12/04/21 17:00 DCW [id number]) Out-Patient Physical Therapy Visit Information Visit Information Visit Type Discharge Summary Visit Start Time 16:45 Visit Stop Time 17:00 Total Visit Minutes 15 Visit Number 4 PT-OP-B Current Condition Start: 11/07/21 21:16 Freq: Status: Active Protocol: Document 11/08/21 13:45 AMB (Rec: 11/08/21 13:56 AMB [id number]) Current Condition History of Current Condition Onset Date acute exacerbation Current Complaints dizziness History of Current Condition [place] great since last visit of PT in the winter which treated him for BPPV, then 2 weeks ago dizziness started back up again. Getting dizzy to get up at night, and in the morning. Looking up and down (like big bends forward) increase sx. Dizziness lasts at least a minute when getting out of bed. Denies nausea, ear pressure pain. Pt does endorse chronic double vision. Dizziness is less of a spinning and more of a movement that makes walking difficult. Treatment Goals Patient/Caregiver Goals Get rid of dizziness Personal Factors Other Personal Factors That May Effect Hx of Meneire's??, Hx cataract Therapy/Recovery surgery, torn retina surger 2021, Hx prostate cancer 1994, Cardiac bypass 2012 PT-OP-C Subjective Start: 11/07/21 21:16 Freq: Status: Active Protocol: Document 12/04/21 16:45 DCW (Rec: 12/04/21 17:00 DCW [id number]) OP-PT Subjective Patient Comments Patient Comments I've been working outside, getting up and down, working on my car, still no dizziness. PT-OP-O Vestibular Start: 11/07/21 21:16 Freq: Status: Active Protocol: Document 11/08/21 13:45 AMB (Rec: 11/08/21 20:16 AMB [id number]) Vestibular Assessment Visual Testing Smooth Pursuits Horizontal WFL Smooth Pursuits Vertical WFL Saccades Horizontal WFL Saccades Vertical WFL Gaze Evoked Nystagmus With Fixation Negative Thrust Head Negative Convergence Test WNL Positional Testing [place]-Hallpike Positive Left,Upbeating,< 60 Seconds Comments Vestibular Comments Pt with very brief nystagmus, but without subjective dizziness with L [place]-Hallpike, but did have dizziness with position 3 of Chelly. Instructed in post manuever precautions. PT-OP-Q Treatments Start: 11/07/21 21:16 Freq: Status: Active Protocol: Document 12/04/21 16:45 DCW (Rec: 12/04/21 17:00 DCW [id number]) Manual Therapy Treatment Other Other Manual Treatments Positional testing PT-OP-T Assessment and Plan Start: 11/07/21 21:16 Freq: Status: Active Protocol: Document 12/04/21 16:45 DCW (Rec: 12/04/21 17:00 DCW [id number]) Physical Therapy Assessment Goals Two Impairment [place]-Hallpike Short Term Goal (STG) Jalen will have a negative L [place] -Hallpike. STG Duration Met One Impairment Dizziness Short Term Goal (STG) Jalne will get out of bed without dizziness. STG Duration Met Fci Goal (LTG) Jalen will bend forward and look up without dizziness. LTG Duration Met Assessment Summary Assessment Pt presenting with negative positional testing today. Pt notes no recent symptoms of vertigo with positional changes. Pt has met all goals, does not exhibit any lingering symptoms of BPPV. Appropriate for discharge at this time. Pt reminded he will require a new referral if there is a recurrence of BPPV. Physical Therapy Plan Frequency and Duration Frequency of Treatment 2x/Week Duration of Treatment 8 weeks Plan of Care Start Date 11/08/21 Plan of Care End Date 01/03/22 Discharge Physical Therapy Discharge Reasons Goals Met Next Visit Focus/Plan Next Note Type Discharge Summary
== END 2021-12-05 14:40 ==
LOC: PHYS 16:45
PROVIDERS: Family Provider Student in an Organized Health Care Education/Training Program; PCP Student in an Organized Health Care Education/Training Program; Referring Provider Otolaryngology; Visit Provider Otolaryngology
DX: H90.5 Unspecified sensorineural hearing loss (principal); H81.02 Meniere's disease, left ear; J34.89 Other specified disorders of nose and nasal sinuses; H81.12 Benign paroxysmal vertigo, left ear
CPT/HCPCS: 95992; 97140; 97161

== ENCOUNTER → 2021-12-28 10:34 | Outpatient (CLI) | payer MEDICARE, OTHER, SELFPAY ==
[2021-12-28 12:01] LABS: Cholesterol 128 mg/dL (140-199); HDL Cholesterol 70 mg/dL (40-60); LDL Cholesterol Calculated 42 mg/dL (<100); Triglycerides 78 mg/dL (35-150)
== END ==
PROVIDERS: Family Provider Student in an Organized Health Care Education/Training Program; PCP Student in an Organized Health Care Education/Training Program; Referring Provider Nurse Practitioner Family; Visit Provider Nurse Practitioner Family
DX: E78.5 Hyperlipidemia, unspecified (principal); I25.10 Atherosclerotic heart disease of native coronary artery without angina pectoris
CPT/HCPCS: 36415; 80061

== ENCOUNTER → 2022-01-18 08:29 | Outpatient (CLI) | payer MEDICARE, OTHER, SELFPAY ==
[2022-01-18 10:01] LABS: COVID19 -Nasal RAPID Negative (Negative)
--- NOTE | 2022-01-18 17:48 | DI.NM.S_ITS ---
DATE OF SERVICE: 01/18/2022 PROCEDURE PERFORMED: Exercise treadmill stress and rest myocardial perfusion imaging study with gating to assess ejection fraction and regional wall motion. ORDERING PROVIDER: Dr. Jimena Patino. INDICATIONS: The patient is an 86-year-old male with a history of CABG who presents with atypical chest discomfort. EXERCISE TREADMILL TESTING: The patient was able to exercise for 8 minutes, 30 seconds on a standard Steve protocol suggesting exceptional exercise capacity with an SHAY of -77%, achieving 10.1 METs. He had a normal heart rate response to exercise with a maximum heart rate of 135 BPM (99% of his predicted maximum). He had a borderline blood pressure response to exercise with a resting blood pressure of 140/80, increasing to a maximum of 200/90. He had no chest discomfort other anginal symptoms. His resting ECG shows sinus rhythm with normal ST segments. With exercise, there is mild nonspecific upsloping ST depression that promptly resolves within 1 minute of recovery and thus is nonspecific. There were no arrhythmias. At 5 minutes, 55 seconds of exercise at a heart rate of 116 BPM, 26.9mCi of technetium-99m Myoview was injected and he was imaged 15 minutes later using a gated SPECT acquisition protocol. Earlier in the day while at rest, he had been injected with 11.9 mCi of technetium-99m Myoview andwas imaged 20 minutes later, again using a gated SPECT acquisition protocol. FINDINGS: 1. Raw data.: There is good myocardial tracer uptake with no significant artifact. The lung/heart ratio is normal at 0.24 with a normal TID ratio of 0.90. 2. Quantitated gated SPECT: Post-stress ejection fraction is estimated at 72% without any focal wall motion abnormality although mild translational movement of the heart, consistent with previous cardiac surgery. His resting ejection fraction is 73% with a normal resting end-diastolic volume of 89 mL. 3. Myocardial perfusion imaging: Post-stress supine images shows a normal perfusion pattern without any perfusion defects, supported by normal perfusion pattern in the prone position. The resting images show an identical perfusion pattern without any areas of improvement. IMPRESSION: 1. Normal myocardial perfusion study. 2. No perfusion defects to suggest myocardial ischemia or previous myocardial infarction. 3. Normal left ventricular systolic function without any focal wall motion abnormality. 4. Exceptional exercise capacity without angina and only mild nonspecific ST abnormalities. He had a borderline hypertensive blood pressure response to exercise. Dre Santiago - Alyce/luke doc#: [id number]/job#: [id number] dd: 01/18/2022 17:22:00 dt: 01/18/2022 17:32:00 DICTATING MD/COPIES TO: Unruly Siu MD; Johnathon Zhong MD COPIES MNE: REGGIE;
== END ==
PROVIDERS: Family Provider Student in an Organized Health Care Education/Training Program; PCP Student in an Organized Health Care Education/Training Program; Referring Provider Nurse Practitioner Family; Visit Provider Nurse Practitioner Family
DX: I25.10 Atherosclerotic heart disease of native coronary artery without angina pectoris (principal); R07.89 Other chest pain; Z20.822 Contact with and (suspected) exposure to COVID-19; Z95.1 Presence of aortocoronary bypass graft
CPT/HCPCS: 78452; 87635; 93017; A9502

== ENCOUNTER 2022-05-03 13:45 | Outpatient (RCR) | payer MEDICARE, OTHER, SELFPAY ==
--- NOTE | 2022-05-01 14:26 | PT.OIE ---
Current Diagnoses Benign paroxysmal vertigo, unspecified ear (05/01/22) Benign paroxysmal vertigo, left ear (05/01/22) Visit Care Team Role Provider Type Alberto Lyman DO Attending Provider Non-Staff Family Provider Primary Care Provider Referring Provider Specialty: Family Practice Address: [address] [place] [address], [id number] Email: Physical Therapy Initial Evaluation PT-OP-A Visit Information Start: 05/01/22 14:12 Freq: Status: Active Protocol: Document 05/01/22 13:45 DCW (Rec: 05/01/22 14:26 DCW [id number]) Out-Patient Physical Therapy Visit Information Visit Information Visit Type Initial Evaluation Visit Start Time 13:45 Visit Stop Time 14:10 Total Visit Minutes 25 Visit Number 1 Number of NURSE INFECTION CONTROL Visits 0 Evaluation Information Evaluation Date 05/01/22 PT-OP-B Current Condition Start: 05/01/22 14:12 Freq: Status: Active Protocol: Document 05/01/22 13:45 DCW (Rec: 05/01/22 14:26 DCW [id number]) Current Condition History of Current Condition Onset Date 1-2 months Current Complaints Position-dependent vertigo History of Current Condition Pt is a 86 year old male complaining of a 1-2 month history of motion-induced vertigo. Pt is very well known to this clinic and has been treated numerous times for recurring BPPV. Pt reports symptoms are exactly the same, although currently less severe, than they have been in the past, and are provoked by going from horizontal to vertical, or laying down in bed. Pt denies and changes in his overall health since his last time in vestibular rehab, other than karl COVID around Thanksgiving. PT-OP-C Subjective Start: 05/01/22 14:12 Freq: Status: Active Protocol: Document 05/01/22 13:45 DCW (Rec: 05/01/22 14:26 DCW [id number]) OP-PT Subjective Patient Comments Patient Comments It seems to be worse in the morning, but will happen pretty much any time I go from horizontal to vertical. Patient Questionnaires Dizziness Handicap Inventory DHI Score 36% DHI Functional Impairment 20 to 39% Impaired (Score 20- 39) PT-OP-O Vestibular Start: 05/01/22 14:12 Freq: Status: Active Protocol: Document 05/01/22 13:45 DCW (Rec: 05/01/22 14:26 DCW [id number]) Vestibular Assessment Screening Tests Vestibular Artery Screen Negative Positional Testing [place]-Hallpike Positive Left,Negative Right, Upbeating,< 60 Seconds PT-OP-Q Treatments Start: 05/01/22 14:12 Freq: Status: Active Protocol: Document 05/01/22 13:45 DCW (Rec: 05/01/22 14:26 DCW [id number]) Canalithic Repositioning BPPV Treatment Chelly Affected Canal(s) Left posterior Reps x2 Comments Modified Chelly PT-OP-T Assessment and Plan Start: 05/01/22 14:12 Freq: Status: Active Protocol: Document 05/01/22 13:45 DCW (Rec: 05/01/22 14:26 DCW [id number]) Physical Therapy Assessment Rehab Potential Rehabilitation Potential Excellent Evaluation Complexity Number of Personal Factors/Comorbidities 1-2 Number of Body Systems Impaired 1-2 Clinical Presentation at Evaluation Unstable Impairments Impairments Balance,Vestibular Goals Two Impairment Positive left Dick-Hallpike Detention Goal (LTG) Positional testing negative bilaterally LTG Duration 06/01/22 One Impairment Pt complaints of position- dependent vertigo Short Term Goal (STG) Pt to report performing bed mobility without vertigo for a full week. STG Duration 05/17/22 Assessment Summary Assessment During left [place]-Hallpike test, pt complained of vertigo and demonstrated up-beating, torsional nystagmus lasting approximately 10 seconds, consistent with diagnosis of left/right-sided posterior canal BPPV, canalithiasis-type . Pt was treated with a left- sided modified Chelly maneuver. Pt complained of symptoms in the first and third position, which is normally indicative of a successful treatment. A second Hallpike showed some mild lingering vertigo and nystagmus, so a second modified Chelly was performed. Further positional testing was negative. 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 If pt does not respond as expected to treatment for BPPV, further testing will be indicated for a better overall picture. Physical Therapy Plan Frequency and Duration Frequency of Treatment 1-2x/week Plan of Care Start Date 05/01/22 Plan of Care End Date 06/01/22 Therapeutic Interventions Therapeutic Interventions Balance Training,Canalithic Repositioning,Vestibular Rehabilitation Next Visit Focus/Plan Next Note Type Treatment Note Next Visit Plan Positional testing, CRM as indicated
--- NOTE | 2022-05-01 14:27 | PT.OPPOC ---
Physical, Occupational & Speech Therapy At [facility] Current Diagnoses Benign paroxysmal vertigo, unspecified ear (05/01/22) Benign paroxysmal vertigo, left ear (05/01/22) Visit Care Team Role Provider Type Alberto Lyman DO Attending Provider Non-Staff Family Provider Primary Care Provider Referring Provider Specialty: Family Practice Address: [address] [place] [address], [phone] Email: Plan Of Care PT-OP-T Assessment and Plan Start: 05/01/22 14:12 Freq: Status: Active Protocol: Document 05/01/22 13:45 DCW (Rec: 05/01/22 14:26 DCW [id number]) Physical Therapy Assessment Rehab Potential Rehabilitation Potential Excellent Evaluation Complexity Number of Personal Factors/Comorbidities 1-2 Number of Body Systems Impaired 1-2 Clinical Presentation at Evaluation Unstable Impairments Impairments Balance,Vestibular Goals Two Impairment Positive left Dick-Hallpike Chcf Goal (LTG) Positional testing negative bilaterally LTG Duration 06/01/22 One Impairment Pt complaints of position- dependent vertigo Short Term Goal (STG) Pt to report performing bed mobility without vertigo for a full week. STG Duration 05/17/22 Assessment Summary Assessment During left Dick-Hallpike test, pt complained of vertigo and demonstrated up-beating, torsional nystagmus lasting approximately 10 seconds, consistent with diagnosis of left/right-sided posterior canal BPPV, canalithiasis-type . Pt was treated with a left- sided modified Chelly maneuver. Pt complained of symptoms in the first and third position, which is normally indicative of a successful treatment. A second Hallpike showed some mild lingering vertigo and nystagmus, so a second modified Chelly was performed. Further positional testing was negative. 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 If pt does not respond as expected to treatment for BPPV, further testing will be indicated for a better overall picture. Physical Therapy Plan Frequency and Duration Frequency of Treatment 1-2x/week Plan of Care Start Date 05/01/22 Plan of Care End Date 06/01/22 Therapeutic Interventions Therapeutic Interventions Balance Training,Canalithic Repositioning,Vestibular Rehabilitation Next Visit Focus/Plan Next Note Type Treatment Note Next Visit Plan Positional testing, CRM as indicated Plan of Care Dates Plan of Care Start Date 05/01/22 Plan of Care End Date 06/01/22 Electronically Signed by: Valdemar Montero, PT 05/01/22 2188 If you are in agreement with this Plan of Care, please return a signed and dated copy. I have reviewed this Plan of Care and certify that the skilled therapy services above are required to meet the patient?s needs. Physician Signature Date Printed Name and Credentials Clinical Instructor Signature Printed Name and Credentials
--- NOTE | 2022-05-03 14:06 | PT.OTN ---
Current Diagnoses Benign paroxysmal vertigo, unspecified ear (05/03/22) Benign paroxysmal vertigo, left ear (05/03/22) Physical Therapy Treatment Note PT-OP-A Visit Information Start: 05/01/22 14:12 Freq: Status: Active Protocol: Document 05/03/22 13:45 DCW (Rec: 05/03/22 14:06 DCW [id number]) Out-Patient Physical Therapy Visit Information Visit Information Visit Type Treatment Note Visit Start Time 13:45 Visit Stop Time 13:55 Total Visit Minutes 10 Visit Number 2 Number of FIRST LEVELER Visits 0 Evaluation Information Evaluation Date 05/01/22 PT-OP-B Current Condition Start: 05/01/22 14:12 Freq: Status: Active Protocol: Document 05/01/22 13:45 DCW (Rec: 05/01/22 14:26 DCW [id number]) Current Condition History of Current Condition Onset Date 1-2 months Current Complaints Position-dependent vertigo History of Current Condition Pt is a 86 year old male complaining of a 1-2 month history of motion-induced vertigo. Pt is very well known to this clinic and has been treated numerous times for recurring BPPV. Pt reports symptoms are exactly the same, although currently less severe, than they have been in the past, and are provoked by going from horizontal to vertical, or laying down in bed. Pt denies and changes in his overall health since his last time in vestibular rehab, other than karl COVID around Thanksgiving. PT-OP-C Subjective Start: 05/01/22 14:12 Freq: Status: Active Protocol: Document 05/03/22 13:45 DCW (Rec: 05/03/22 14:06 DCW [id number]) OP-PT Subjective Patient Comments Patient Comments I think I'm better. PT-OP-O Vestibular Start: 05/01/22 14:12 Freq: Status: Active Protocol: Document 05/03/22 13:45 DCW (Rec: 05/03/22 14:06 DCW [id number]) Vestibular Assessment Positional Testing [place]-Hallpike Negative Left,Negative Right PT-OP-Q Treatments Start: 05/01/22 14:12 Freq: Status: Active Protocol: Document 05/03/22 13:45 DCW (Rec: 05/03/22 14:06 DCW [id number]) Canalithic Repositioning BPPV Treatment Chelly Affected Canal(s) Left posterior Reps x1 Comments Modified Chelly PT-OP-T Assessment and Plan Start: 05/01/22 14:12 Freq: Status: Active Protocol: Document 05/03/22 13:45 DCW (Rec: 05/03/22 14:06 DCW [id number]) Physical Therapy Assessment Impairments Impairments Balance,Vestibular Goals Two Impairment Positive left Dick-Hallpike [place] Net Goal (LTG) Positional testing negative bilaterally LTG Duration 06/01/22 One Impairment Pt complaints of position- dependent vertigo Short Term Goal (STG) Pt to report performing bed mobility without vertigo for a full week. STG Duration 05/17/22 Assessment Summary Assessment Pt positional testing negative today, pt reports feeling asymptomatic since last visit. BPPV likely successfully treatment, however due to pt's history of recurrence, will keep one follow-up appointment on the schedule in three weeks. Pt instructed to phone and cancel if symptoms have not returned. Physical Therapy Plan Frequency and Duration Frequency of Treatment 1-2x/week Plan of Care Start Date 05/01/22 Plan of Care End Date 06/01/22 Therapeutic Interventions Therapeutic Interventions Balance Training,Canalithic Repositioning,Vestibular Rehabilitation Next Visit Focus/Plan Next Note Type Treatment Note Next Visit Plan Positional testing, CRM as indicated
--- NOTE | 2022-09-30 16:48 | PT.OPDS ---
Current Diagnoses Benign paroxysmal vertigo, unspecified ear (05/03/22) Benign paroxysmal vertigo, left ear (05/03/22) Visit Care Team Role Provider Type Alberto Lyman DO Attending Provider Non-Staff Family Provider Primary Care Provider Referring Provider Specialty: Family Practice Address: [address] [place] [address], [phone] Email: Visit Number Visit Number 2 Discharge Summary PT-OP-B Current Condition Start: 05/01/22 14:12 Freq: Status: Active Protocol: Document 05/01/22 13:45 DCW (Rec: 05/01/22 14:26 DCW [id number]) Current Condition History of Current Condition Onset Date 1-2 months Current Complaints Position-dependent vertigo History of Current Condition Pt is a 86 year old male complaining of a 1-2 month history of motion-induced vertigo. Pt is very well known to this clinic and has been treated numerous times for recurring BPPV. Pt reports symptoms are exactly the same, although currently less severe, than they have been in the past, and are provoked by going from horizontal to vertical, or laying down in bed. Pt denies and changes in his overall health since his last time in vestibular rehab, other than karl COVID around Thanksgiving. PT-OP-C Subjective Start: 05/01/22 14:12 Freq: Status: Active Protocol: Document 05/03/22 13:45 DCW (Rec: 05/03/22 14:06 DCW [id number]) OP-PT Subjective Patient Comments Patient Comments I think I'm better. PT-OP-O Vestibular Start: 05/01/22 14:12 Freq: Status: Active Protocol: Document 05/03/22 13:45 DCW (Rec: 05/03/22 14:06 DCW [id number]) Vestibular Assessment Positional Testing Dick-Hallpike Negative Left,Negative Right PT-OP-T Assessment and Plan Start: 05/01/22 14:12 Freq: Status: Active Protocol: Document 09/30/22 16:47 DCW (Rec: 09/30/22 16:48 DCW [id number]) Physical Therapy Assessment Assessment Summary Assessment Pt canceled vestibular follow- up, has not made any further appointments. Pt has now not been seen in more than four months, POC has now . Pt will require a new referral in order to return to skilled therapy. Pt will be discharged from PT at this time.
== END 2022-10-01 12:10 | disposition home or self-care (01) ==
LOC: PHYS 13:45
PROVIDERS: Family Provider Student in an Organized Health Care Education/Training Program; PCP Student in an Organized Health Care Education/Training Program; Referring Provider Student in an Organized Health Care Education/Training Program; Visit Provider Student in an Organized Health Care Education/Training Program
DX: H81.12 Benign paroxysmal vertigo, left ear (principal); H81.10 Benign paroxysmal vertigo, unspecified ear
CPT/HCPCS: 95992; 97140; 97161